=== PATIENT | female | born 1935 | race Caucasian/White ===

== ENCOUNTER 2018-02-27 08:38 | Inpatient (IN) | payer OTHER ==
[2018-02-27] MEDS ORDERED: morphine CARPU-JECT 2 MG/1 ML DISP.SYRIN IVPUSH ONE (10:03)
[2018-02-27] MEDS ORDERED: MORPHINE SULFATE 2 MG/ML VIAL ONE (10:13)
--- NOTE | 2018-02-27 10:21 | PDOC ---
History of Present Illness - General Chief Complaint: Injury Stated Complaint: FALL Time Seen by Provider: 02/27/18 10:07 History Source: Patient, Family (son) - History of Present Illness Initial Comments: 82 y/o F w/PMH of HTN, OA, mandibular CA S/P resection 04/2013 at [facility], S/P bilateral hip fractures, gait disorder, L knee TKR, R femur fracture presents to the ER with pain in R hip. Hx translated with son at bedside. Pt was using her walker to walk to her doctors appt when she lost her footing and fell on her R hip. Has been unable to bear weight on leg now and has pain with extension or flexion at hip. She did not hit her head and only fell on her side, landing on her hip. She has been having some dizziness over the last few days. She denies CP, palpitations, SOB, cough, abd pain, dysuria, frequency, numbness or tingling in extremities. Past History - Past Medical History Allergies/Adverse Reactions: Allergies Allergy/AdvReac Type Severity Reaction Status Date / Time No Known Allergies Allergy Verified 08/15/13 15:15 Home Medications: Ambulatory Orders Atenolol [Tenormin -] 100 mg PO DAILY 04/04/14 Celecoxib [Celebrex] 200 mg PO DAILY 04/04/14 Acetaminophen [Tylenol .Regular Strength -] 650 mg PO Q6H PRN #10 tablet Antiox.mv No.10/Omeg3s/Lut/Loly [I-Caps with Lutein-[place] 3 Sfg] 1 each PO DAILY 05/09/15 Calcium 500 mg PO BID 05/09/15 Cholecalciferol (Vitamin D3) [Vitamin D-3] 2,000 unit PO DAILY 05/09/15 Multivit-Min/FA/Lycopen/Lutein [Centrum Silver Tablet] 1 each PO DAILY 05/09/15 Aspirin [ASA -] 325 mg PO DAILY@0800 tablet 05/10/15 Anemia: No Asthma: No Cancer: No Cardiac Disorders: No CVA: No COPD: No CHF: No Dementia: No Diabetes: No GI Disorders: No Disorders: No HTN: Yes Hypercholesterolemia: No Liver Disease: No Seizures: No Thyroid Disease: No - Surgical History Abdominal Surgery: No Appendectomy: No Cardiac Surgery: No Cholecystectomy: Yes Lung Surgery: No Neurologic Surgery: No Orthopedic Surgery: Yes (DONY HIP REPAIRS) - Immunization History Immunization Up to Date: Yes - Suicide/Smoking/Psychosocial Hx Smoking Status: No Smoking History: Never smoked Have you smoked in the past 12 months: No Number of Cigarettes Smoked Daily: 0 Information on smoking cessation initiated: No Hx Alcohol Use: No Drug/Substance Use Hx: No Substance Use Type: None Hx Substance Use Treatment: No Review of Systems - Review of Systems Able to Perform ROS?: Yes (son translated) Constitutional: No: Chills, Fever Respiratory: No: Cough, Shortness of Breath Cardiac (ROS): Yes: Lightheadedness. No: Chest Pain, Palpitations ABD/GI: Yes: Constipated (chronic). No: Nausea, Vomiting : No: Burning, Dysuria, Frequency Musculoskeletal: Yes: Joint Pain (R hip) Neurological: Yes: Dizziness. No: Numbness, Tingling *Physical Exam - Vital Signs Last Vital Signs Temp Pulse Resp BP Pulse Ox 97.4 F L 68 68 H 153/70 100 02/27/18 08:45 02/27/18 08:45 02/27/18 08:45 02/27/18 08:45 02/27/18 08:45 - Physical Exam General Appearance: Yes: Appropriately Dressed, Apparent Distress (crying due to pain) HEENT: positive: EOMI Respiratory/Chest: positive: Lungs Clear. negative: Respiratory Distress Cardiovascular: positive: Regular Rhythm, Regular Rate, S1, S2 (difficult to auscultate due to pt crying) Vascular Pulses: Dorsalis-Pedis (R): 2+, Doralis-Pedis (L): 2+ Gastrointestinal/Abdominal: positive: Normal Bowel Sounds, Soft. negative: Tender Musculoskeletal: positive: Decreased Range of Motion (at R hip), Other (Pain with passive extension and flexion at R hip. Tender to palpation at R hip. No pain with log rolling of R leg.) Neurologic: positive: Fully Oriented, Alert, Other (Sensation intact in b/l LE to light touch.) ED Treatment Course - LABORATORY CBC & Chemistry Diagram: 02/27/18 10:29 02/27/18 10:27 - RADIOLOGY Radiology Studies Ordered: Category Date Time Status CXRPORT [CHEST X-RAY PORTABLE*] [RAD] Stat Radiology 02/27/18 10:12 Ordered HIP & PELVIS-RIGHT [RAD] Stat Radiology 02/27/18 10:03 Ordered Medical Decision Making - Medical Decision Making 02/27/18 10:24 Pt with pain at R hip after mechanical fall but has been having dizziness over the last few days. Last fall according to family was 2-3 years ago. Will check CBC, CMP, trops, EKG, UA, CXR, R hip and pelvis XR 02/27/18 11:33 Pt was unable to lay flat for CXR or for hip/pelvis XR. Was able to get one film of femur in her current positioning. Spoke with Dr. Vences regarding the patient's femoral fracture seen on XR. Pt to have pain control, NPO after midnight, and will have surgery tomorrow. 02/27/18 11:37 Will start on fluids - NS @ 75 ml/hr. Pt on ASA 81 - To be held. 02/27/18 11:39 Pt still in pain. Will give 4 mg morphine IV. Zofran 4 mg. EKG: sinus rhythm with PACs. 68 bpm. QTc 452 ms. 02/27/18 11:51 Dr. Graves' service called. Spoke with office who states Dr. Pena will be taking admissions at this time for Dr. Graves. Dr. Sow on for Dr. Pena at this time. Awaiting call back. *DC/Admit/Observation/Transfer Diagnosis at time of Disposition: Femur fracture - Discharge Dispostion Condition at time of disposition: Stable Decision to Admit order: Yes - Referrals Referrals: Hodan Graves MD [Primary Care Provider] - - Patient Instructions - Post Discharge Activity
[2018-02-27 10:59] LABS: EOS % 1.7 % (0-4.5); HEMOGLOBIN 12.3 GM/dL (10.7-15.3); LYMPH % 14.8 % (8-40); MCH 26.1 pg (25.7-33.7); MCHC 31.6 g/dl (32.0-36.0); MEAN CELL VOLUME 82.7 fl (80-96); MEAN PLT VOLUME 10.5 fl (7.5-11.1); MONO % 1.5 % (3.8-10.2); PLATELET COUNT 225 K/MM3 (134-434); RBC 4.71 M/mm3 (3.60-5.2); RDW 15.1 % (11.6-15.6); WHITE BLOOD COUNT 10.3 K/mm3 (4.0-10.0)
[2018-02-27 11:11] LABS: INR 0.91 (0.83-1.09); PROTHROMBIN TIME (PATIENT) 10.7 SEC (9.7-13.0)
[2018-02-27 11:14] LABS: ACTIVATED PTT 27.1 SECONDS (25.2-36.5)
[2018-02-27] MEDS ORDERED: morphine CARPU-JECT 4 MG/1 ML DISP.SYRIN IVPUSH ONE (11:21)
[2018-02-27] MEDS ORDERED: morphine SULFATE 4 MG/ML VIAL ONE (11:34)
[2018-02-27] MEDS ORDERED: ONDANSETRON 4 MG/2 ML VIAL ONE (11:34)
[2018-02-27 11:35] LABS: ALBUMIN 3.7 g/dl (3.4-5.0); ALK PHOS 97 U/L (45-117); ANION GAP 7 MMOL/L (8-16); BILIRUBIN,TOTAL 0.4 mg/dL (0.2-1); BLOOD UREA NITROGEN 27 mg/dL (7-18); CALCIUM 9.2 mg/dL (8.5-10.1); CHLORIDE 104 mmol/L (98-107); CO2 25 mmol/L (21-32); CREATININE 0.8 mg/dL (0.55-1.3); GLUCOSE,RANDOM 107 mg/dL (74-106); POTASSIUM 4.6 mmol/L (3.5-5.1); SGOT/AST 42 U/L (15-37); SGPT/ALT 21 U/L (13-61); SODIUM 137 mmol/L (136-145); TOT PROT 7.8 g/dl (6.4-8.2)
[2018-02-27] MEDS: ONDANSETRON 4 MG/2 ML VIAL IVPB ONE (11:40)
[2018-02-27] MEDS ORDERED: SODIUM CHLORIDE 1,000 ML IV SCH (11:45)
--- NOTE | 2018-02-27 11:54 | PDOC ---
Attending Attestation - HPI HPI: 02/27/18 12:10 The patient is a 82 year old female with a significant past medical history of HTN, OA, mandibular CA S/P resection 04/2013 at [facility], S/P bilateral hip fractures, gait disorder, L knee TKR, R femur fracture who presents to the ER with right hip pain. As per son at bedside, the patient was using her walker and subsequently fell. The patient has been unable to bear weight on her right leg since. The fall was witnessed and denies any head trauma. The son also states the patient has been complaining of dizziness for the past two days. The patient denies chest pain, shortness of breath, headache. Denies fever, chills, nausea, vomit, diarrhea, and constipation. Denies dysuria, frequency, urgency, and hematuria. Allergies: NKA Social history: None reported. PCP: Dr. Graves - Physicial Exam PE: 02/27/18 13:03 Adult Physical Exam Vitals: Triage vital signs reviewed General Appearance: (+) In moderate distress. Well nourished, well developed. Head: Atraumatic Cardiac: Regular rate and rhythm, no murmurs, no rubs, no gallops Lungs: Clear to auscultation bilateral, good air movement bilaterally Abdomen: Soft, nondistended, normal bowel sounds, nontender to palpation Extremities: no cyanosis, clubbing, or edema. (+) Right hip deformity, neurovascularly intact distally. Skin: Warm and dry, no rashes or lesions, no rash, no petechiae Neuro: AOX3; Cranial Nerves 2-12 grossly intact, Strength intact to all extremities, Sensation intact to all extremities, gait normal Psych: Normal mood, normal affect - Medical Decision Making 02/27/18 12:00 Case d/w christina [place]. <Elis Copeland - Last Filed: 02/27/18 13:03> - Resident Resident Name: Steven Sarabia - ED Attending Attestation I have performed the following: I have examined & evaluated the patient, The case was reviewed & discussed with the resident, I agree w/resident's findings & plan, Exceptions are as noted - Medical Decision Making 82 years old with lightheadedness complicated by fall on x-ray femur fracture distal to previous hip replacement IV pain medication ordered were no significant relief Anesthesia consultation for femoral nerve block Patient now more comfortable. Orthopedics consult and likely for tomorrow limits medicine for further management. <Augusto Granados - Last Filed: 02/27/18 14:55>
[2018-02-27] MEDS ORDERED: MIDAZOLAM HCL 2 MG/2 ML SINGLE DOSE VIAL IVPUSH ONE ×3 (12:40→13:39)
[2018-02-27] MEDS ORDERED: MIDAZOLAM HCL 2 MG/2 ML SINGLE DOSE VIAL ONE (12:43)
[2018-02-27] MEDS ORDERED: ROPIVACAINE HCL 0.5% 30ML VIAL ONE (13:17)
[2018-02-27 13:43] LABS: URINE APPEARANCE CLEAR; URINE BILIRUBIN NEGATIVE (<2.0 mg/dL); URINE COLOR YELLOW; URINE GLUCOSE (UA) NEGATIVE (NEGATIVE); URINE KETONE TRACE (NEGATIVE); URINE LEUK ESTERASE NEGATIVE (NEGATIVE); URINE NITRITE NEGATIVE (NEGATIVE); URINE PROTEIN NEGATIVE (NEGATIVE); URINE UROBILINOGEN NEGATIVE mg/dL (0.2-1.0)
--- NOTE | 2018-02-27 13:45 | PN ---
Progress Note (short form) - Note Progress Note: Anesthesia/Pain Called to perfom right femoral block for pain control s/p proximal femoral fracture Iv versed 4mg used Under ultrasound guidance right femoral block performed after consent Dr sommer assisted Vitals stable pre and post procedure Mt Azul MD
--- NOTE | 2018-02-27 13:59 | CON.ORTH ---
Consult Reason for Consultation:: right femur fx - Past Medical History Cardio/Vascular: Yes: HTN Musculoskeletal: Yes: Osteoarthritis - Past Surgical History Past Surgical History: Yes: Cholecystectomy - Alcohol/Substance Use Hx Alcohol Use: No History of Substance Use: reports: None - Smoking History Smoking history: Never smoked Have you smoked in the past 12 months: No Aproximately how many cigarettes per day: 0 - Social History ADL: Independent History of Recent Travel: No Home Medications - Allergies Allergies/Adverse Reactions: Allergies Allergy/AdvReac Type Severity Reaction Status Date / Time No Known Allergies Allergy Verified 08/15/13 15:15 - Home Medications Home Medications: Ambulatory Orders Atenolol [Tenormin -] 100 mg PO DAILY 04/04/14 Celecoxib [Celebrex] 200 mg PO DAILY 04/04/14 Acetaminophen [Tylenol .Regular Strength -] 650 mg PO Q6H PRN #10 tablet Antiox.mv No.10/Omeg3s/Lut/Loly [I-Caps with Lutein-[place] 3 Sfg] 1 each PO DAILY 05/09/15 Calcium 500 mg PO BID 05/09/15 Cholecalciferol (Vitamin D3) [Vitamin D-3] 2,000 unit PO DAILY 05/09/15 Multivit-Min/FA/Lycopen/Lutein [Centrum Silver Tablet] 1 each PO DAILY 05/09/15 Aspirin [ASA -] 325 mg PO DAILY@0800 tablet 05/10/15 Physical Exam for Ortho Vital Signs: Vital Signs Temperature 97.4 F L 02/27/18 08:45 Pulse Rate 79 02/27/18 13:27 Respiratory Rate 18 02/27/18 13:27 Blood Pressure 125/49 L 02/27/18 13:27 O2 Sat by Pulse Oximetry (%) 100 02/27/18 13:27 Labs: CBC, BMP 02/27/18 10:29 02/27/18 10:27 INR, PTT INR 0.91 (0.83-1.09) 02/27/18 10:29 - Lower Extremity Hip: Yes: Right, Decreased ROM (+ deformity, nvi), Leg Externally Rotated, Leg Shortened, Pain, Swelling, Other Imaging - Results X-ray: Report Reviewed, Image Reviewed Assessment/Plan 82 year old female with a significant past medical history of HTN, OA, mandibular CA S/P resection 04/2013 at [facility], S/P bilateral hip fractures, gait disorder, L knee TKR, R femur fracture who presents to the ER with right hip pain. As per son at bedside, the patient was using her walker and subsequently fell. The patient has been unable to bear weight on her right leg since. The fall was witnessed and denies any head trauma. a/p right femoral shaft fx s/p previous ORIF Risks and benefits were d/w pt and son in detail OR tomorrow for right femur retrograde nail surgical clearance NPO after midnight d/w Dr. Vences
--- NOTE | 2018-02-27 14:01 | HP ---
Admitting History and Physical - Primary Care Physician PCP: Hodan Graves - Admission Chief Complaint: s/p fall lost balance History of Present Illness: he patient is a 82 year old female with a significant past medical history of HTN, OA, mandibular CA S/P resection 04/2013 at [facility], S/P bilateral hip fractures, gait disorder, L knee TKR, R femur fracture who presents to the ER with right hip pain. As per son at bedside, the patient was using her walker and subsequently fell. The patient has been unable to bear weight on her right leg since. The fall was witnessed and denies any head trauma. The son also states the patient has been complaining of dizziness for the past two days. The patient denies chest pain, shortness of breath, headache. Denies fever, chills, nausea, vomit, diarrhea, and constipation. Denies dysuria, frequency, urgency, and hematuria. History Source: Family Member - Past Medical History Cardiovascular: Yes: HTN Musculoskeletal: Yes: Osteoarthritis - Past Surgical History Past Surgical History: Yes: Cholecystectomy - Smoking History Smoking history: Never smoked Have you smoked in the past 12 months: No Aproximately how many cigarettes per day: 0 - Alcohol/Substance Use Hx Alcohol Use: No History of Substance Use: reports: None - Social History ADL: Independent History of Recent Travel: No Home Medications - Allergies Allergies/Adverse Reactions: Allergies Allergy/AdvReac Type Severity Reaction Status Date / Time No Known Allergies Allergy Verified 08/15/13 15:15 - Home Medications Home Medications: Ambulatory Orders Atenolol [Tenormin -] 100 mg PO DAILY 04/04/14 Celecoxib [Celebrex] 200 mg PO DAILY 04/04/14 Acetaminophen [Tylenol .Regular Strength -] 650 mg PO Q6H PRN #10 tablet Antiox.mv No.10/Omeg3s/Lut/Loly [I-Caps with Lutein-[place] 3 Sfg] 1 each PO DAILY 05/09/15 Calcium 500 mg PO BID 05/09/15 Cholecalciferol (Vitamin D3) [Vitamin D-3] 2,000 unit PO DAILY 05/09/15 Multivit-Min/FA/Lycopen/Lutein [Centrum Silver Tablet] 1 each PO DAILY 05/09/15 Aspirin [ASA -] 325 mg PO DAILY@0800 tablet 05/10/15 Review of Systems - Review of Systems Musculoskeletal: reports: Joint Pain Physical Examination Vital Signs: Vital Signs Temperature 97.4 F L 02/27/18 08:45 Pulse Rate 79 02/27/18 13:27 Respiratory Rate 18 02/27/18 13:27 Blood Pressure 125/49 L 02/27/18 13:27 O2 Sat by Pulse Oximetry (%) 100 02/27/18 13:27 Constitutional: Yes: Calm Cardiovascular: Yes: Regular Rate and Rhythm, S1, S2 Respiratory: Yes: CTA Bilaterally Gastrointestinal: Yes: Normal Bowel Sounds, Soft Extremities: Yes: Deformity, Shortened Labs: CBC, BMP 02/27/18 10:29 02/27/18 10:27 Imaging - Results Chest X-ray: Report Reviewed (mid shaft femur fracture) Problem List - Problems (1) Femur fracture Assessment/Plan: NPO tonight OR In AM- ortho cardiology cleareance right femoral nerve block done by anesthesia pain control reese cath leukocytosis secondary to stress of fracture dvt ppx Code(s): S72.90XA - UNSP FRACTURE OF UNSP FEMUR, INIT ENCNTR FOR CLOSED FRACTURE
[2018-02-27] MEDS: DEXTROSE 5%-0.45% SALINE 1,000 ML IV SCH (15:35)
[2018-02-27 18:51] VITALS: BMI 25.9
--- NOTE | 2018-02-27 19:58 | CON.CARD ---
Consult Consult Specialty:: Cardiology Reason for Consultation:: Preop clearance - History of Present Illness Chief Complaint: S/P Fall History of Present Illness: This is an 82 year old female with a PMH of [place], OA, mandibular CA S/P resection 04/2013 at [facility], S/P bilateral hip fractures, gait disorder, and L knee TKR, R femur fracture. She present now to the ED with right Hip pain after a mechanical fall. With likely require orthopaedic surgery. She denies cardiac symptoms. She denies chest pain, palpitations, and SOB. She had no cardiac issues during her past surgeries. - Past Medical History Cardio/Vascular: Yes: HTN Musculoskeletal: Yes: Osteoarthritis - Past Surgical History Past Surgical History: Yes: Cholecystectomy - Alcohol/Substance Use Hx Alcohol Use: No History of Substance Use: reports: None - Smoking History Smoking history: Never smoked Have you smoked in the past 12 months: No Aproximately how many cigarettes per day: 0 - Social History ADL: Independent History of Recent Travel: No Home Medications - Allergies Allergies/Adverse Reactions: Allergies Allergy/AdvReac Type Severity Reaction Status Date / Time No Known Allergies Allergy Verified 08/15/13 15:15 - Home Medications Home Medications: Ambulatory Orders Atenolol [Tenormin -] 100 mg PO DAILY 04/04/14 Celecoxib [Celebrex] 200 mg PO DAILY 04/04/14 Acetaminophen [Tylenol .Regular Strength -] 650 mg PO Q6H PRN #10 tablet Antiox.mv No.10/Omeg3s/Lut/Loly [I-Caps with Lutein-[place] 3 Sfg] 1 each PO DAILY 05/09/15 Calcium 500 mg PO BID 05/09/15 Cholecalciferol (Vitamin D3) [Vitamin D-3] 2,000 unit PO DAILY 05/09/15 Multivit-Min/FA/Lycopen/Lutein [Centrum Silver Tablet] 1 each PO DAILY 05/09/15 Aspirin [ASA -] 325 mg PO DAILY@0800 tablet 05/10/15 Review of Systems Findings/Remarks: As per HPI Vital Signs: Vital Signs Temperature 98.5 F 02/27/18 18:26 Pulse Rate 75 02/27/18 18:26 Respiratory Rate 18 02/27/18 18:26 Blood Pressure 140/66 02/27/18 18:26 O2 Sat by Pulse Oximetry (%) 99 02/27/18 18:26 Constitutional: Yes: No Distress HENT: Yes: WNL Neck: Yes: WNL Respiratory: Yes: CTA Bilaterally Gastrointestinal: Yes: Normal Bowel Sounds Renal/: Yes: WNL Cardiovascular: Yes: Regular Rate and Rhythm (NL S1S2, no MRHG) Edema: No Neurological: Yes: Alert, Oriented (Non focal) - Other Data Labs, Other Data: CBC, BMP 02/27/18 10:29 02/27/18 10:27 INR, PTT INR 0.91 (0.83-1.09) 02/27/18 10:29 Troponin, BNP 02/27/18 10:27 Troponin I < 0.02 Troponin, BNP 02/27/18 10:27 Troponin I < 0.02 Assessment/Plan 82 year old female with a PMH of [place], OA, mandibular CA S/P resection 04/2013 at [facility], S/P bilateral hip fractures, gait disorder, and L knee TKR, R femur fracture. She present now to the ED with right Hip pain after a mechanical fall. With likely require orthopaedic surgery. She denies cardiac symptoms. She denies chest pain, palpitations, and SOB. She had no cardiac issues during her past surgeries. Preoperative Evaluation There are no cardiac contraindicaitons to orthopaedic surgery. Will follow with you.
--- NOTE | 2018-02-27 21:51 | EKG ---
Test Reason : Blood Pressure : / mmHG Vent. Rate : 068 BPM Atrial Rate : 068 BPM P-R Int : 102 ms QRS Dur : 078 ms QT Int : 426 ms P-R-T Axes : 070 -13 022 degrees QTc Int : 452 ms POOR DATA QUALITY, INTERPRETATION MAY BE ADVERSELY AFFECTED SINUS RHYTHM WITH SHORT NC WITH PREMATURE ATRIAL COMPLEXES BORDERLINE ECG WHEN COMPARED WITH ECG OF 04-APR-2014 11:46, PREMATURE ATRIAL COMPLEXES ARE NOW present Confirmed by JO-ANN COX MD ([id number]) on 02/27/2018 9:51:24 PM Referred By: Confirmed By:JO-ANN COX MD
[2018-02-28] MEDS: MORPHINE SULFATE 2 MG/ML VIAL IVPUSH PRN ×3 (05:50→19:28)
[2018-02-28] MEDS: DEXTROSE 5%-0.45% SALINE 1,000 ML IV SCH (05:51)
[2018-02-28 08:20] LABS: ALBUMIN 2.8 g/dl (3.4-5.0); ALK PHOS 92 U/L (45-117); ANION GAP 6 MMOL/L (8-16); BILIRUBIN,TOTAL 0.6 mg/dL (0.2-1); BLOOD UREA NITROGEN 19 mg/dL (7-18); CALCIUM 8.5 mg/dL (8.5-10.1); CHLORIDE 106 mmol/L (98-107); CO2 27 mmol/L (21-32); CREATININE 0.8 mg/dL (0.55-1.3); GLUCOSE,RANDOM 133 mg/dL (74-106); POTASSIUM 4.1 mmol/L (3.5-5.1); SGOT/AST 42 U/L (15-37); SGPT/ALT 26 U/L (13-61); SODIUM 139 mmol/L (136-145)
[2018-02-28 08:23] LABS: BASO % 0.8 % (0-2.0); EOS % 1.5 % (0-4.5); HEMATOCRIT 33.8 % (32.4-45.2); LYMPH % 16.4 % (8-40); MCH 26.8 pg (25.7-33.7); MCHC 32.5 g/dl (32.0-36.0); MEAN CELL VOLUME 82.4 fl (80-96); MEAN PLT VOLUME 9.9 fl (7.5-11.1); MONO % 3.1 % (3.8-10.2); NEUT % 78.2 % (42.8-82.8); PLATELET COUNT 182 K/MM3 (134-434); RBC 4.11 M/mm3 (3.60-5.2); RDW 14.7 % (11.6-15.6); WHITE BLOOD COUNT 7.9 K/mm3 (4.0-10.0)
--- NOTE | 2018-02-28 08:44 | PN ---
Progress Note, Physician Chief Complaint: EVENTS AND NOTES REVIEWED S/P FALL RIGHT HIP FX IN MODERATE DISTRESS - Current Medication List Current Medications: Active Medications Enoxaparin Sodium (Lovenox -) 40 mg SQ DAILY [facility] Dextrose/Sodium Chloride (D5-1/2ns -) 1,000 mls @ 75 mls/hr IV ASDIR DEBO Last Admin: 02/28/18 05:51 Dose: 75 mls/hr Morphine Sulfate (Morphine Sulfate) 2 mg IVPUSH Q4H PRN PRN Reason: PAIN LEVEL 7 - 10 Last Admin: 02/28/18 05:50 Dose: 2 mg - Objective Vital Signs: Vital Signs Temperature 97.5 F L 02/28/18 06:56 Pulse Rate 70 02/28/18 06:56 Respiratory Rate 20 02/28/18 06:56 Blood Pressure 115/61 02/28/18 06:56 O2 Sat by Pulse Oximetry (%) 99 02/27/18 21:00 Constitutional: Yes: Moderate Distress Eyes: Yes: WNL HENT: Yes: WNL Cardiovascular: Yes: WNL Respiratory: Yes: WNL Gastrointestinal: Yes: WNL Genitourinary: Yes: WNL Musculoskeletal: Yes: Muscle Weakness Extremities: Yes: Other Edema: No Peripheral Pulses WNL: Yes Integumentary: Yes: WNL Wound/Incision: Yes: Clean/Dry Neurological: Yes: WNL ...Motor Strength: LLE, RLE Psychiatric: Yes: WNL Labs: CBC, BMP 02/27/18 10:29 02/28/18 06:00 INR, PTT INR 0.91 (0.83-1.09) 02/27/18 10:29 Problem List - Problems (1) Femur fracture Code(s): S72.90XA - UNSP FRACTURE OF UNSP FEMUR, INIT ENCNTR FOR CLOSED FRACTURE (2) Hip fracture Code(s): S72.009A - FRACTURE OF UNSP PART OF NECK OF UNSP FEMUR, INIT (3) Hypertension Code(s): I10 - ESSENTIAL (PRIMARY) HYPERTENSION Assessment/Plan ORTHOPEDIC CLEARANCE FOR HIP SURGERY DVT PROPHYLAXIS PAIN CONTROL PT SNF
[2018-02-28] MEDS ORDERED: ENOXAPARIN NA (PORCINE) 40 MG/0.4 ML DISP.SYRIN SQ SCH (10:00)
[2018-02-28] MEDS ORDERED: SUCCINYLCHOLINE CHLORIDE 200 MG/10 ML VIAL ONE (12:47)
[2018-02-28] MEDS ORDERED: PROPOFOL 20 ML ONE (12:47)
[2018-02-28] MEDS ORDERED: ceFAZolin SODIUM 1 GM VIAL IVPB ONE (13:00)
--- NOTE | 2018-02-28 14:36 | OP ---
Operative Note - Note: Operative Date: 02/28/18 ([facility]) Pre-Operative Diagnosis: right femoral shaft fx Operation: right femur removal of hardware, retrograde IM nail Post-Operative Diagnosis: Same as Pre-op Surgeon: Rodlan Vences Operating Room Tech: Obinna Cherry Anesthesia: General Estimated Blood Loss (mls): 400 Operative Report Dictated: Yes
[2018-02-28] MEDS ORDERED: LACTATED RINGERS SOLUTION 1,000 ML IV SCH (14:45)
--- NOTE | 2018-02-28 14:52 | PN ---
Progress Note, Physician Chief Complaint: seen in pacu postop tele nsr. History of Present Illness: 82 year old female with a PMH of [place], OA, mandibular CA S/P resection 04/2013 at [facility], S/P bilateral hip fractures, gait disorder, and L knee TKR, R femur fracture. She present now to the ED with right Hip pain after a mechanical fall. With likely require orthopaedic surgery. She denies cardiac symptoms. She denied chest pain, palpitations, and SOB. She had no cardiac issues during her past surgeries. Now s/p complex prosthetic hip fracture revision. Brief decrease in end tidal CO2 during surgery. Getting PRBC. - Current Medication List Current Medications: Active Medications Enoxaparin Sodium (Lovenox -) 40 mg SQ DAILY DEBO Last Admin: 02/28/18 09:56 Dose: Not Given Cefazolin Sodium/Dextrose (Ancef 2 Gm Premixed Ivpb -) 2 gm in 50 mls @ 100 mls /hr IVPB Q8H-IV DEBO Stop: 03/01/18 02:14 Lactated Ringer's (Lactated Ringers Solution) 1,000 mls @ 75 mls/hr IV ASDIR DEBO Morphine Sulfate (Morphine Sulfate) 2 mg IVPUSH Q4H PRN PRN Reason: PAIN LEVEL 7 - 10 Last Admin: 02/28/18 10:08 Dose: 2 mg - Objective Vital Signs: Vital Signs Temperature 97.8 F 02/28/18 09:00 Pulse Rate 78 02/28/18 09:00 Respiratory Rate 20 02/28/18 09:00 Blood Pressure 116/51 L 02/28/18 09:00 O2 Sat by Pulse Oximetry (%) 98 02/28/18 09:00 Constitutional: Yes: No Distress, Calm Eyes: Yes: Conjunctiva Clear, EOM Intact HENT: Yes: Atraumatic, Normocephalic Neck: Yes: Supple, Trachea Midline Cardiovascular: Yes: Regular Rate and Rhythm Respiratory: Yes: CTA Bilaterally Gastrointestinal: Yes: Normal Bowel Sounds, Soft Edema: No Peripheral Pulses WNL: Yes Labs: CBC, BMP 02/28/18 07:20 02/28/18 06:00 INR, PTT INR 0.91 (0.83-1.09) 02/27/18 10:29 Assessment/Plan 82 year old female with a PMH of [place], OA, mandibular CA S/P resection 04/2013 at [facility], S/P bilateral hip fractures, gait disorder, and L knee TKR, R femur fracture. She present now to the ED with right Hip pain after a mechanical fall. With likely require orthopaedic surgery. She denies cardiac symptoms. She denied chest pain, palpitations, and SOB. She had no cardiac issues during her past surgeries. Now s/p complex prosthetic hip fracture revision. Brief decrease in end tidal CO2 during surgery. Getting PRBC. -stable cardiac status postop -DVT PPX. -end tidal co2 brief decrease is likely due to hypoventilation and/or atalectasis/mucus plugging. -doubt ischemia. -restart home meds when stable -call us as needed.
[2018-02-28] MEDS ORDERED: ONDANSETRON 4 MG/2 ML VIAL IVPUSH PRN (14:56)
[2018-02-28] MEDS ORDERED: ACETAMINOPHEN 1000 MG/100 ML VIAL (NON FORMULARY) IVPB ONE (14:58)
[2018-02-28] MEDS ORDERED: ONDANSETRON 4 MG/2 ML VIAL ONE (15:54)
[2018-02-28] MEDS: ONDANSETRON 4 MG/2 ML VIAL IVPB ONE (16:00)
[2018-02-28] MEDS: LACTATED RINGERS SOLUTION 1,000 ML IV SCH (19:32)
[2018-02-28] MEDS ORDERED: CEFAZOLIN 2 GM/D5W 2 GM/50 ML ML IVPB SCH (21:00)
[2018-02-28] MEDS: oxyCODONE HCL 5 MG TABLET PO PRN (22:02)
[2018-02-28] MEDS: CEFAZOLIN 2 GM/D5W 2 GM/50 ML ML IVPB SCH (22:03)
[2018-03-01] MEDS: MORPHINE SULFATE 2 MG/ML VIAL IVPUSH PRN ×5 (00:40→20:24)
[2018-03-01] MEDS: oxyCODONE HCL 5 MG TABLET PO PRN ×4 (02:50→18:15)
[2018-03-01] MEDS: CEFAZOLIN 2 GM/D5W 2 GM/50 ML ML IVPB SCH ×2 (05:56→13:36)
--- NOTE | 2018-03-01 08:06 | OP ---
DATE OF OPERATION: 02/28/2018 PREOPERATIVE DIAGNOSIS: Right periprosthetic femoral shaft fracture below an old DHS (dynamic hip system) hip plate and screws. POSTOPERATIVE DIAGNOSIS: Right periprosthetic femoral shaft fracture below an old DHS (dynamic hip system) hip plate and screws. PROCEDURE: Removal of hardware and then retrograde nailing of the right femoral shaft fracture. SURGICAL ATTENDING: Roldan Vences MD BUSINESS ANALYSIS CONSULTANT: CHEIKH Shoemaker ANESTHESIA: General. CLOSURE: A Tolley retrograde femoral nail with appropriate interlocks, 0 Vicryl for fascia, 2-0 subcutaneous, lorri for skin. ESTIMATED BLOOD LOSS: Approximately 400 mL. COMPLICATIONS: None. CONDITION: To recovery room in stable condition. DESCRIPTION OF OPERATIVE PROCEDURE: Patient was taken to the operating room on February 28, 2018. General anesthesia with endotracheal intubation was administered by the anesthesiologist. IV Kefzol was prophylactically administered prior to the case. Patient was placed supine on the operating table. Right hip area from the groin all the way down to the knee was prepped and draped in the usual sterile fashion. A 5-6-cm longitudinal incision over the previous scar in the posterolateral aspect of the right proximal thigh was incised. Hemostasis was achieved with Bovie cautery, and sharp dissection was carried down through the level of the fascia. The vastus lateralis fibers were spread exposing the lateral aspect of the plate. Soft tissue in and around the plate was debrided exposing the plate. Four of the locking screws were removed. The rest of the plate was left as it was caked in with bone, and the lag screw was left in situ, as well. Verbrugge clamps were placed both on the proximal and distal fragments and used to manipulate the fracture until an anatomic reduction was obtained. A small 5-cm incision over the medial aspect of the patellar tendon was incised. Hemostasis was achieved using Bovie cautery. Sharp dissection was carried down just medial to the tendon entering the knee joint. A guidewire was drilled from the distal femur just above the notch into the distal femur. Proper placement of the wire was confirmed in the AP and lateral plane by using the image intensifier. This was overreamed with the starter reamer. A ball-tipped guidewire was placed up the intramedullary canal of the femur past the fracture site into the proximal aspect of the hip. Wire was measured for length. The intramedullary canal was reamed up to a 13.5 reamer. A 12 x 340 mm dennise was then malletted up into place achieving excellent anatomic reduction of the fracture. Two distal interlocks were placed using the outrigger from lateral to medial through 2 small stab incisions achieving excellent fixation. The outrigger was then removed. Using a free-hand technique, 2 anterior to posterior locking screws were placed in the proximal aspect of the femur, which was the distal aspect of the dennise from anterior to posterior. X-rays revealed excellent position of the screws. Anatomic reduction of the fracture position of all the hardware was confirmed in the AP and lateral plane. Rotation revealed excellent stability at the fracture site. All incisions were irrigated out.with copious amounts of irrigation. The fascia was closed in both incisions with No. 1 Vicryl, 0 and 2-0 subcutaneous, lorri for skin. Sterile pressure dressing was applied. Patient was awakened from anesthesia and transferred to the recovery room in stable condition. No complications. Patient bled approximately 400 mL at the end of the case. We began administering 1 unit of packed cells. Patient will get that over 3 hours, and then a additional unit to follow, and then, we will check the hematocrit tomorrow to ensure appropriate response to the blood loss in the operation. Patient was transferred to the recovery room in stable condition. Estimated blood loss again 400 mL. No complications Jose Angel [id number]
[2018-03-01 08:21] LABS: HEMATOCRIT 32.2 % (32.4-45.2); HEMOGLOBIN 10.6 GM/dL (10.7-15.3); MCH 27.3 pg (25.7-33.7); MCHC 32.9 g/dl (32.0-36.0); MEAN PLT VOLUME 9.9 fl (7.5-11.1); PLATELET COUNT 132 K/MM3 (134-434); RBC 3.89 M/mm3 (3.60-5.2); RDW 14.7 % (11.6-15.6); WHITE BLOOD COUNT 7.7 K/mm3 (4.0-10.0)
[2018-03-01 08:55] LABS: ANION GAP 8 MMOL/L (8-16); BLOOD UREA NITROGEN 18 mg/dL (7-18); CALCIUM 7.9 mg/dL (8.5-10.1); CHLORIDE 105 mmol/L (98-107); CO2 25 mmol/L (21-32); CREATININE 0.8 mg/dL (0.55-1.3); GLUCOSE,RANDOM 122 mg/dL (74-106); POTASSIUM 4.1 mmol/L (3.5-5.1); SODIUM 138 mmol/L (136-145)
[2018-03-01] MEDS ORDERED: PT OWN MED DRAWER 7, Y5N ONE ×3 (10:11→18:35)
--- NOTE | 2018-03-01 11:11 | PN ---
Progress Note, Physician Chief Complaint: AWAKE ALERT SON BEDSIDE C/O SOAR THROAT FROM EXTUBATION DENIES FEVER/CHEST PAIN OR DYSPNEA - Current Medication List Current Medications: Active Medications Benzocaine/Menthol (Cepacol Lozenge -) 1 each MM PRN PRN PRN Reason: SORE THROAT Enoxaparin Sodium (Lovenox -) 40 mg SQ DAILY [facility] Cefazolin Sodium/Dextrose (Ancef 2 Gm Premixed Ivpb -) 2 gm in 50 mls @ 100 mls /hr IVPB Q8H [facility] Stop: 03/01/18 20:59 Last Admin: 03/01/18 05:56 Dose: 100 mls/hr Lactated Ringer's (Lactated Ringers Solution) 1,000 mls @ 75 mls/hr IV ASDIR [facility] Last Admin: 02/28/18 19:32 Dose: 75 mls/hr Lactated Ringer's (Lactated Ringers Solution) 1,000 mls @ 75 mls/hr IV ASDIR [facility] Morphine Sulfate (Morphine Sulfate) 2 mg IVPUSH Q4H PRN PRN Reason: PAIN LEVEL 7 - 10 Last Admin: 03/01/18 10:20 Dose: 2 mg Ondansetron HCl (Zofran Injection) 4 mg IVPUSH Q6H PRN PRN Reason: NAUSEA AND/OR VOMITING Oxycodone HCl (Roxicodone -) 10 mg PO Q4H PRN PRN Reason: PAIN LEVEL 6-10 Last Admin: 03/01/18 08:00 Dose: 10 mg Oxycodone HCl (Roxicodone -) 5 mg PO Q4H PRN PRN Reason: PAIN LEVEL 1-5 Phenol/Menthol (Chloraseptic -) 1 spray MM Q6HPO PRN PRN Reason: SORE THROAT - Objective Vital Signs: Vital Signs Temperature 99.1 F 03/01/18 06:00 Pulse Rate 92 H 03/01/18 06:00 Respiratory Rate 20 03/01/18 06:00 Blood Pressure 118/50 L 03/01/18 06:00 O2 Sat by Pulse Oximetry (%) 100 02/28/18 18:00 Constitutional: Yes: Mild Distress Eyes: Yes: WNL HENT: Yes: WNL Neck: Yes: WNL Cardiovascular: Yes: WNL Respiratory: Yes: WNL Gastrointestinal: Yes: WNL Genitourinary: Yes: Friedman Present Musculoskeletal: Yes: Muscle Pain, Muscle Weakness Extremities: Yes: Other Edema: No Peripheral Pulses WNL: Yes Integumentary: Yes: WNL Wound/Incision: Yes: Clean/Dry Neurological: Yes: WNL ...Motor Strength: RLE Psychiatric: Yes: WNL Labs: CBC, BMP 03/01/18 07:15 03/01/18 07:15 INR, PTT INR 0.91 (0.83-1.09) 02/27/18 10:29 Problem List - Problems (1) Femur fracture Code(s): S72.90XA - UNSP FRACTURE OF UNSP FEMUR, INIT ENCNTR FOR CLOSED FRACTURE (2) Hip fracture Code(s): S72.009A - FRACTURE OF UNSP PART OF NECK OF UNSP FEMUR, INIT (3) Hypertension Code(s): I10 - ESSENTIAL (PRIMARY) HYPERTENSION Assessment/Plan ORTHOPEDIC CLEARANCE FOR HIP SURGERY POD #1 DVT PROPHYLAXIS PAIN CONTROL PT SNF CHLOREPT/CEPACOL FOR THROAT PAIN SOFT DIET INCENTIVE SPIROMETRY FRIEDMAN MAINTAIN
[2018-03-01] MEDS: ENOXAPARIN NA (PORCINE) 40 MG/0.4 ML DISP.SYRIN SQ SCH (12:16)
[2018-03-01] MEDS: LACTATED RINGERS SOLUTION 1,000 ML IV SCH ×2 (12:18→17:21)
[2018-03-01] MEDS: BENZOCAINE/MENTH/CETYLPYRD CL 1 EACH LOZENGE MM PRN (18:22)
[2018-03-01] MEDS: PHENOL 177 ML SPRAY BOTTLE MM PRN (18:22)
[2018-03-02] MEDS: oxyCODONE HCL 5 MG TABLET PO PRN ×3 (00:13→16:50)
[2018-03-02] MEDS: PHENOL 177 ML SPRAY BOTTLE MM PRN ×2 (00:19→10:12)
[2018-03-02] MEDS: BENZOCAINE/MENTH/CETYLPYRD CL 1 EACH LOZENGE MM PRN ×2 (00:19→10:12)
[2018-03-02] MEDS: MORPHINE SULFATE 2 MG/ML VIAL IVPUSH PRN ×3 (02:40→19:51)
[2018-03-02] MEDS ORDERED: PT OWN MED DRAWER 7, Y5N ONE ×3 (06:55→10:22)
--- NOTE | 2018-03-02 07:50 | PN ---
Progress Note, Physician Chief Complaint: s/p right distal femur ORIF History of Present Illness: under general anesthesia post op day one - Current Medication List Current Medications: Active Medications Benzocaine/Menthol (Cepacol Lozenge -) 1 each MM PRN PRN PRN Reason: SORE THROAT Last Admin: 03/02/18 00:19 Dose: 1 each Enoxaparin Sodium (Lovenox -) 40 mg SQ DAILY [facility] Last Admin: 03/01/18 12:16 Dose: 40 mg Lactated Ringer's (Lactated Ringers Solution) 1,000 mls @ 75 mls/hr IV ASDIR [facility] Last Admin: 03/01/18 17:21 Dose: Not Given Morphine Sulfate (Morphine Sulfate) 2 mg IVPUSH Q4H PRN PRN Reason: PAIN LEVEL 7 - 10 Last Admin: 03/02/18 02:40 Dose: 2 mg Ondansetron HCl (Zofran Injection) 4 mg IVPUSH Q6H PRN PRN Reason: NAUSEA AND/OR VOMITING Oxycodone HCl (Roxicodone -) 10 mg PO Q4H PRN PRN Reason: PAIN LEVEL 6-10 Last Admin: 03/02/18 00:13 Dose: 10 mg Oxycodone HCl (Roxicodone -) 5 mg PO Q4H PRN PRN Reason: PAIN LEVEL 1-5 Phenol/Menthol (Chloraseptic -) 1 spray MM Q6HPO PRN PRN Reason: SORE THROAT Last Admin: 03/02/18 00:19 Dose: 1 spray - Objective Vital Signs: Vital Signs Temperature 99.1 F 03/02/18 05:32 Pulse Rate 98 H 03/02/18 05:32 Respiratory Rate 20 03/02/18 05:32 Blood Pressure 106/62 03/02/18 05:32 O2 Sat by Pulse Oximetry (%) 100 02/28/18 18:00 Constitutional: Yes: No Distress Cardiovascular: Yes: WNL Respiratory: Yes: WNL Gastrointestinal: Yes: WNL Labs: CBC, BMP 03/01/18 07:15 03/01/18 07:15 INR, PTT INR 0.91 (0.83-1.09) 02/27/18 10:29 Assessment/Plan Pain controlled, no adverse effect of anesthetic, dept of anesthesia will sign off care at this time
[2018-03-02 08:22] LABS: HEMATOCRIT 30.1 % (32.4-45.2); HEMOGLOBIN 9.7 GM/dL (10.7-15.3); MCHC 32.2 g/dl (32.0-36.0); MEAN PLT VOLUME 10.3 fl (7.5-11.1); PLATELET COUNT 136 K/MM3 (134-434); RBC 3.59 M/mm3 (3.60-5.2); RDW 15.2 % (11.6-15.6); WHITE BLOOD COUNT 8.5 K/mm3 (4.0-10.0)
[2018-03-02] MEDS: ENOXAPARIN NA (PORCINE) 40 MG/0.4 ML DISP.SYRIN SQ SCH (10:12)
[2018-03-02] MEDS: LACTATED RINGERS SOLUTION 1,000 ML IV SCH ×3 (10:13→11:36)
--- NOTE | 2018-03-02 11:01 | PN ---
Progress Note, Physician Chief Complaint: AWAKE ALERT C/O NAUSEA NOT VOMITING +GERD - Current Medication List Current Medications: Active Medications Benzocaine/Menthol (Cepacol Lozenge -) 1 each MM PRN PRN PRN Reason: SORE THROAT Last Admin: 03/02/18 10:12 Dose: 1 each Enoxaparin Sodium (Lovenox -) 40 mg SQ DAILY [facility] Last Admin: 03/02/18 10:12 Dose: 40 mg Lactated Ringer's (Lactated Ringers Solution) 1,000 mls @ 75 mls/hr IV ASDIR [facility] Last Admin: 03/02/18 10:17 Dose: 75 mls/hr Morphine Sulfate (Morphine Sulfate) 2 mg IVPUSH Q4H PRN PRN Reason: PAIN LEVEL 7 - 10 Last Admin: 03/02/18 02:40 Dose: 2 mg Ondansetron HCl (Zofran Injection) 4 mg IVPUSH Q6H PRN PRN Reason: NAUSEA AND/OR VOMITING Oxycodone HCl (Roxicodone -) 10 mg PO Q4H PRN PRN Reason: PAIN LEVEL 6-10 Last Admin: 03/02/18 08:09 Dose: 10 mg Oxycodone HCl (Roxicodone -) 5 mg PO Q4H PRN PRN Reason: PAIN LEVEL 1-5 Phenol/Menthol (Chloraseptic -) 1 spray MM Q6HPO PRN PRN Reason: SORE THROAT Last Admin: 03/02/18 10:12 Dose: 1 spray - Objective Vital Signs: Vital Signs Temperature 97.8 F 03/02/18 09:00 Pulse Rate 106 H 03/02/18 09:00 Respiratory Rate 19 03/02/18 09:00 Blood Pressure 139/78 03/02/18 09:00 O2 Sat by Pulse Oximetry (%) 97 03/02/18 09:00 Constitutional: Yes: Mild Distress Eyes: Yes: WNL HENT: Yes: WNL Neck: Yes: WNL Cardiovascular: Yes: WNL Respiratory: Yes: WNL Gastrointestinal: Yes: WNL Genitourinary: Yes: WNL Musculoskeletal: Yes: Muscle Weakness Extremities: Yes: WNL Edema: No Peripheral Pulses WNL: Yes Integumentary: Yes: WNL Wound/Incision: Yes: Clean/Dry Neurological: Yes: WNL ...Motor Strength: LLE, RLE Psychiatric: Yes: WNL Labs: CBC, BMP 03/02/18 06:00 03/01/18 07:15 INR, PTT INR 0.91 (0.83-1.09) 02/27/18 10:29 Problem List - Problems (1) Femur fracture Code(s): S72.90XA - UNSP FRACTURE OF UNSP FEMUR, INIT ENCNTR FOR CLOSED FRACTURE (2) Hip fracture Code(s): S72.009A - FRACTURE OF UNSP PART OF NECK OF UNSP FEMUR, INIT (3) Hypertension Code(s): I10 - ESSENTIAL (PRIMARY) HYPERTENSION Assessment/Plan PROTONIX/ZOFRAN IV NOW OOB TO CHAIR INCENTIVE SPIROMETRY NEBS CHECK LABS ORTHO F/U
[2018-03-02] MEDS: PANTOPRAZOLE SODIUM 40 MG VIAL IVPUSH SCH (11:34)
--- NOTE | 2018-03-02 12:54 | PN ---
Progress Note (short form) - Note Progress Note: Pt lying in bed. Pain moderately controlled. Last Vital Signs Temp Pulse Resp BP Pulse Ox 97.8 F 106 H 19 139/78 97 03/02/18 09:00 03/02/18 09:00 03/02/18 09:00 03/02/18 09:00 03/02/18 09:00 RLE dresings cdi thigh swollen but soft calves soft NT ehl fhl ta g s intact sens int to LT 1+ dp Abnormal Lab Results 03/02/18 06:00 RBC 3.59 L Hgb 9.7 L Hct 30.1 L a/p: pod 2 R femoral periprosthetic nail -pain control -dvt proph -oob / PT -tachycardia most likely secondary to discomfort - continue to monitor -f/u AM HCT
[2018-03-02] MEDS: CALCIUM 500MG/VIT-D 200 UNITS COMBO TABLET (FP) PO SCH (21:26)
[2018-03-03] MEDS: oxyCODONE HCL 5 MG TABLET PO PRN ×5 (00:08→22:12)
[2018-03-03] MEDS: LACTATED RINGERS SOLUTION 1,000 ML IV SCH ×3 (00:11→20:13)
[2018-03-03] MEDS: PHENOL 177 ML SPRAY BOTTLE MM PRN (00:31)
[2018-03-03] MEDS ORDERED: PT OWN MED DRAWER 7, Y5N ONE (00:32)
[2018-03-03] MEDS: BENZOCAINE/MENTH/CETYLPYRD CL 1 EACH LOZENGE MM PRN (00:32)
--- NOTE | 2018-03-03 08:39 | PN ---
Progress Note (short form) - Note Progress Note: Ortho Pt seen and examined s/p right femur retrograde nail pod #3 Selected Entries 03/03/18 06:42 Temperature 98.3 F Pulse Rate 110 H Respiratory 19 Rate Blood Pressure 107/60 Laboratory Tests 03/02/18 06:00 WBC 8.5 Hgb 9.7 L Hct 30.1 L Plt Count 136 dressing c/d/i, calf soft, nt nvi a/p PT PWB dvt ppx pain control d/c planning
--- NOTE | 2018-03-03 09:00 | DS ---
Physical Examination Vital Signs: Vital Signs Temperature 98.3 F 03/03/18 06:42 Pulse Rate 110 H 03/03/18 06:42 Respiratory Rate 19 03/03/18 06:42 Blood Pressure 107/60 03/03/18 06:42 O2 Sat by Pulse Oximetry (%) 96 03/02/18 22:00 Labs: CBC, BMP 03/02/18 06:00 03/01/18 07:15 Discharge Summary Reason For Visit: FRACTURE OF FEMUR Current Active Problems Femur fracture (Acute) Condition: Stable - Instructions Referrals: Hodan Graves MD [Primary Care Provider] - - Home Medications Comprehensive Discharge Medication List: Ambulatory Orders Atenolol [Tenormin -] 100 mg PO DAILY 04/04/14 Celecoxib [Celebrex] 200 mg PO DAILY 04/04/14 Acetaminophen [Tylenol .Regular Strength -] 650 mg PO Q6H PRN #10 tablet Antiox.mv No.10/Omeg3s/Lut/Loly [I-Caps with Lutein-[place] 3 Sfg] 1 each PO DAILY 05/09/15 Calcium 500 mg PO BID 05/09/15 Cholecalciferol (Vitamin D3) [Vitamin D-3] 2,000 unit PO DAILY 05/09/15 Multivit-Min/FA/Lycopen/Lutein [Centrum Silver Tablet] 1 each PO DAILY 05/09/15 Aspirin [ASA -] 325 mg PO DAILY@0800 tablet 05/10/15
[2018-03-03] MEDS ORDERED: MAGNESIUM HYDROX 2400MG/30ML ORAL SUSPENSION 30 ML CUP PO ONE (09:29)
[2018-03-03 10:37] LABS: HEMATOCRIT 26.5 % (32.4-45.2); HEMOGLOBIN 8.8 GM/dL (10.7-15.3); MCH 27.7 pg (25.7-33.7); MCHC 33.2 g/dl (32.0-36.0); MEAN CELL VOLUME 83.5 fl (80-96); MEAN PLT VOLUME 9.7 fl (7.5-11.1); PLATELET COUNT 161 K/MM3 (134-434); RBC 3.17 M/mm3 (3.60-5.2); RDW 15.5 % (11.6-15.6); WHITE BLOOD COUNT 7.2 K/mm3 (4.0-10.0)
[2018-03-03 11:46] LABS: ALBUMIN 1.7 g/dl (3.4-5.0); ALK PHOS 77 U/L (45-117); ANION GAP 7 MMOL/L (8-16); BILIRUBIN,TOTAL 0.4 mg/dL (0.2-1); BLOOD UREA NITROGEN 19 mg/dL (7-18); CALCIUM 7.8 mg/dL (8.5-10.1); CHLORIDE 104 mmol/L (98-107); CO2 28 mmol/L (21-32); CREATININE 0.6 mg/dL (0.55-1.3); GLUCOSE,RANDOM 172 mg/dL (74-106); POTASSIUM 3.8 mmol/L (3.5-5.1); SGOT/AST 34 U/L (15-37); SGPT/ALT 15 U/L (13-61); SODIUM 139 mmol/L (136-145); TOT PROT 4.6 g/dl (6.4-8.2)
[2018-03-03] MEDS: ENOXAPARIN NA (PORCINE) 40 MG/0.4 ML DISP.SYRIN SQ SCH (11:52)
[2018-03-03] MEDS: POLYETHYLENE GLYCOL 3350 119 GM BTL PO SCH (11:52)
[2018-03-03] MEDS: PANTOPRAZOLE SODIUM 40 MG VIAL IVPUSH SCH (11:52)
[2018-03-03] MEDS: CALCIUM 500MG/VIT-D 200 UNITS COMBO TABLET (FP) PO SCH ×2 (11:52→22:12)
[2018-03-03] MEDS: ONDANSETRON 4 MG/2 ML VIAL IVPUSH PRN (13:23)
[2018-03-03] MEDS ORDERED: IRON SUCROSE INJECTION 200 MG in SODIUM CHLORIDE 90 ML IVPB ONE (14:00)
--- NOTE | 2018-03-03 15:34 | EKG ---
Test Reason : Blood Pressure : / mmHG Vent. Rate : 111 BPM Atrial Rate : 111 BPM P-R Int : 134 ms QRS Dur : 082 ms QT Int : 336 ms P-R-T Axes : 056 -10 020 degrees QTc Int : 456 ms SINUS TACHYCARDIA OTHERWISE NORMAL ECG WHEN COMPARED WITH ECG OF 27-FEB-2018 09:12, PREMATURE ATRIAL COMPLEXES ARE NO LONGER PRESENT VENT. RATE HAS INCREASED BY 43 BPM Confirmed by DANAY ANN, ARIELA ([id number]) on 03/03/2018 3:34:47 PM Referred By: MORTEZA PANG DR Confirmed By:ARIELA JON MD
--- NOTE | 2018-03-03 15:41 | PN ---
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 She present now to the ED with right Hip pain after a mechanical fall. With likely require orthopaedic surgery. She denies cardiac symptoms. She denied chest pain, palpitations, and SOB. She had no cardiac issues during her past surgeries. Now s/p complex prosthetic hip fracture revision. Seen 03/03/18 and is uncomfortable appearing. No bowel movement for 5 days. Diaphoretic. No chest pain, plapitations, or SOB. - Current Medication List Current Medications: Active Medications Benzocaine/Menthol (Cepacol Lozenge -) 1 each MM PRN PRN PRN Reason: SORE THROAT Last Admin: 03/03/18 00:32 Dose: 1 each Calcium Carbonate/Cholecalciferol (Os-Gavin 500+D -) 1 tab PO BID [facility] Last Admin: 03/03/18 11:52 Dose: 1 tab Enoxaparin Sodium (Lovenox -) 40 mg SQ DAILY [facility] Last Admin: 03/03/18 11:52 Dose: 40 mg Lactated Ringer's (Lactated Ringers Solution) 1,000 mls @ 75 mls/hr IV ASDIR [facility] Last Admin: 03/03/18 14:00 Dose: 75 mls/hr Ondansetron HCl (Zofran Injection) 4 mg IVPUSH Q6H PRN PRN Reason: NAUSEA AND/OR VOMITING Last Admin: 03/02/18 11:34 Dose: 4 mg Ondansetron HCl (Zofran Injection) 4 mg IVPUSH Q4H PRN PRN Reason: NAUSEA AND/OR VOMITING Last Admin: 03/03/18 13:23 Dose: 4 mg Oxycodone HCl (Roxicodone -) 5 mg PO Q4H PRN PRN Reason: PAIN LEVEL 1-5 Pantoprazole Sodium (Protonix Iv) 40 mg IVPUSH DAILY [facility] Last Admin: 03/03/18 11:52 Dose: 40 mg Phenol/Menthol (Chloraseptic -) 1 spray MM Q6HPO PRN PRN Reason: SORE THROAT Last Admin: 03/03/18 00:31 Dose: 1 spray Polyethylene Glycol (Miralax (For Daily Use) -) 17 gm PO DAILY [facility] Last Admin: 03/03/18 11:52 Dose: 17 gm Senna (Senna -) 1 tab PO HS [facility] - Objective Vital Signs: Vital Signs Temperature 98.6 F 03/03/18 13:40 Pulse Rate 115 H 03/03/18 13:40 Respiratory Rate 20 03/03/18 13:40 Blood Pressure 130/60 03/03/18 13:40 O2 Sat by Pulse Oximetry (%) 96 03/02/18 22:00 Constitutional: Yes: Anxious HENT: Yes: WNL Neck: Yes: WNL Cardiovascular: Yes: Regular Rate and Rhythm (No Murmurs. 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 She present now to the ED with right Hip pain after a mechanical fall. With likely require orthopaedic surgery. She denies cardiac symptoms. She denied chest pain, palpitations, and SOB. She had no cardiac issues during her past surgeries. Now s/p complex prosthetic hip fracture revision. Post Constipation - no bowel movement for 5 days Tachy and diaphoretic post op - would consider ruling out a PE Would favor continuing to observe as an inpatient until less symptomatic
[2018-03-03] MEDS: SODIUM CHLORIDE 1,000 ML IV SCH ×2 (16:00→20:12)
--- NOTE | 2018-03-03 16:17 | PN ---
Progress Note, Physician Chief Complaint: TACHYCARDIA REPORTED BY NURSE PATIENT IS DIAPHORETIC DENIES CHEST PAIN OR SOB NO BM X 5 DAYS - Current Medication List Current Medications: Active Medications Benzocaine/Menthol (Cepacol Lozenge -) 1 each MM PRN PRN PRN Reason: SORE THROAT Last Admin: 03/03/18 00:32 Dose: 1 each Calcium Carbonate/Cholecalciferol (Os-Gavin 500+D -) 1 tab PO BID [facility] Last Admin: 03/03/18 11:52 Dose: 1 tab Enoxaparin Sodium (Lovenox -) 40 mg SQ DAILY [facility] Last Admin: 03/03/18 11:52 Dose: 40 mg Lactated Ringer's (Lactated Ringers Solution) 1,000 mls @ 75 mls/hr IV ASDIR [facility] Last Admin: 03/03/18 14:00 Dose: 75 mls/hr Ondansetron HCl (Zofran Injection) 4 mg IVPUSH Q6H PRN PRN Reason: NAUSEA AND/OR VOMITING Last Admin: 03/02/18 11:34 Dose: 4 mg Ondansetron HCl (Zofran Injection) 4 mg IVPUSH Q4H PRN PRN Reason: NAUSEA AND/OR VOMITING Last Admin: 03/03/18 13:23 Dose: 4 mg Oxycodone HCl (Roxicodone -) 5 mg PO Q4H PRN PRN Reason: PAIN LEVEL 1-5 Pantoprazole Sodium (Protonix Iv) 40 mg IVPUSH DAILY [facility] Last Admin: 03/03/18 11:52 Dose: 40 mg Phenol/Menthol (Chloraseptic -) 1 spray MM Q6HPO PRN PRN Reason: SORE THROAT Last Admin: 03/03/18 00:31 Dose: 1 spray Polyethylene Glycol (Miralax (For Daily Use) -) 17 gm PO DAILY [facility] Last Admin: 03/03/18 11:52 Dose: 17 gm Senna (Senna -) 1 tab PO HS [facility] - Objective Vital Signs: Vital Signs Temperature 98.6 F 03/03/18 13:40 Pulse Rate 115 H 03/03/18 13:40 Respiratory Rate 20 03/03/18 13:40 Blood Pressure 130/60 03/03/18 13:40 O2 Sat by Pulse Oximetry (%) 96 03/02/18 22:00 Constitutional: Yes: Mild Distress Eyes: Yes: WNL HENT: Yes: WNL Neck: Yes: WNL Cardiovascular: Yes: Tachycardia Respiratory: Yes: Diminished, On Nasal O2 Gastrointestinal: Yes: Distention Genitourinary: Yes: Friedman Present Musculoskeletal: Yes: Muscle Weakness Extremities: Yes: Other Edema: No Peripheral Pulses WNL: Yes Integumentary: Yes: WNL Wound/Incision: Yes: Clean/Dry Neurological: Yes: WNL ...Motor Strength: LLE, RLE Psychiatric: Yes: WNL Labs: CBC, BMP 03/03/18 10:12 03/03/18 10:23 INR, PTT INR 0.91 (0.83-1.09) 02/27/18 10:29 Problem List - Problems (1) Femur fracture Code(s): S72.90XA - UNSP FRACTURE OF UNSP FEMUR, INIT ENCNTR FOR CLOSED FRACTURE (2) Hip fracture Code(s): S72.009A - FRACTURE OF UNSP PART OF NECK OF UNSP FEMUR, INIT (3) Hypertension Code(s): I10 - ESSENTIAL (PRIMARY) HYPERTENSION (4) Sinus tachycardia Code(s): R00.0 - TACHYCARDIA, UNSPECIFIED (5) Diaphoresis Code(s): R61 - GENERALIZED HYPERHIDROSIS Assessment/Plan PATIENT WILL NEED A RULE OUT OF PULMONARY EMBOLISM POST-OP PATIENTS HAVE A VERY NON-SPECIFIC D-DIMER LEVEL D-DIME NO SPECIFIC AT THIS TIME WILL ORDER A CT CHEST WITH CONTRAST TO R/O PE RENAL AND PULM EVAL IVF RO PREP SYSTEM ON LOVENOX ALREADY 02 SUPPORT CXR/ABD XRAY SHOW NO OBSTRUCTION BUT ATELECTIC CHANGES INCENTIVE SPIROMETRY D/W PATIENT FRIEDMAN KEEP INSERTED OOB TO CHAIR WITH PT TRANSFER TO TELEMETRY
--- NOTE | 2018-03-03 17:35 | PN ---
Progress Note (short form) - Note Progress Note: PULMONARY CONSULTATION DICTATED 03/03/18 IMP DIAPHORESIS/TACHYCARDIA POST OP DAY 3 R/O PE S/P R FEMORAL FX S/P REMOVAL OF HARDWARE RETROGRADE NAILING FEMORAL SHAFT ATELECTASIS ABDOMINAL DISCOMFORT LIKELY CONSTIPATION HTN ANEMIA H/O MANDIBULAR CA S/P RESECTION PLAN CHEST CTA O2 NEEDED LAXATIVES INCENTIVE SPIROMETER ANALGESICS DVT PROPHYLAXIS DR DURON Problem List - Problems (1) Diaphoresis Code(s): R61 - GENERALIZED HYPERHIDROSIS (2) Femur fracture Code(s): S72.90XA - UNSP FRACTURE OF UNSP FEMUR, INIT ENCNTR FOR CLOSED FRACTURE (3) Sinus tachycardia Code(s): R00.0 - TACHYCARDIA, UNSPECIFIED (4) Hip fracture Code(s): S72.009A - FRACTURE OF UNSP PART OF NECK OF UNSP FEMUR, INIT (5) Hypertension Code(s): I10 - ESSENTIAL (PRIMARY) HYPERTENSION (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
[2018-03-03] MEDS: SENNOSIDES 8.6MG TABLET (FP) PO SCH (22:12)
[2018-03-04] MEDS: oxyCODONE HCL 5 MG TABLET PO PRN ×5 (02:28→22:18)
--- NOTE | 2018-03-04 06:20 | CONS ---
PULMONARY CONSULTATION DATE OF CONSULTATION: 03/03/2018 REFERRING PHYSICIAN: Hodan Graves MD The patient is an 82-year-old female with past medical history of hypertension, osteoarthritis, history of mandibular CA status post resection in April 2013 at [facility], status post bilateral hip fractures, gait disorder, left total knee replacement, and right femoral fracture, admitted to [facility] on February 27, status post mechanical fall, complaining of right hip pain. Patient was noted to have an acute right femoral fracture. Patient underwent a removal of hardware and a retrograde nailing of the right femoral shaft on February 28 without complications. Patient was doing well until today when she was noted to be tachycardic and diaphoretic. She denies any complaints of chest pain or shortness of breath at the time. She did apparently complain of some abdominal discomfort and apparently has not had a bowel movement in 5 days. Patient underwent a chest x-ray, revealed rotated films and atelectatic changes at the bases. Patient is a nonsmoker. There is no apparent history of occupational exposure to chemicals or fumes. PAST MEDICAL HISTORY: Again includes hypertension, history of mandibular CA status post resection in 2012, history of cholecystectomy, osteoarthritis, gait disorder, bilateral hip fractures, right total knee replacement. REVIEW OF SYSTEMS: Positive tachycardia. No chest pain or shortness of breath. Positive cough. No fever. No chills. No hemoptysis. Positive palpitations. Positive diaphoresis. Positive abdominal discomfort. CURRENT MEDICATIONS: Include Zofran, Lovenox, MiraLAX, senna, Chloraseptic, normal saline, lactated Ringer's, , Roxicodone, Protonix, and Os-Gavin. PHYSICAL EXAMINATION: General: The patient is an elderly female, well developed, awake, alert, in no acute respiratory distress. Vital Signs: She is currently afebrile. Heart rate is 115. Blood pressure 130/60. Respiratory rate is 20. O2 saturation is 94% on room air. HEENT: Normocephalic, atraumatic. Neck: Supple. Heart: Tachycardic. S1, S2. Chest: There are a few crackles at the bases. Abdomen: Soft. Bowel sounds are positive. Extremities: No cyanosis or edema. LABORATORY DATA: BUN 19, creatinine 0.7. INR is 0.91. WBC 7.2, hemoglobin 8.8, hematocrit 25.5. IMPRESSION: 1. Tachycardia, diaphoresis, postoperative day 3 status post removal of hardware and retrograde nailing of right femoral shaft. Cannot exclude possible pulmonary embolism. 2. infection. 3. Abdominal pain, abdominal discomfort, possibly secondary to constipation. 4. Hypertension. 5. Anemia. PLAN: A CTA of the chest, supplemental O2, analgesics, laxatives, add supplemental iron. REMA DURON M.D. [id number]
[2018-03-04 07:28] LABS: HEMATOCRIT 25.1 % (32.4-45.2); HEMOGLOBIN 8.2 GM/dL (10.7-15.3); MCH 27.3 pg (25.7-33.7); MCHC 32.7 g/dl (32.0-36.0); MEAN CELL VOLUME 83.5 fl (80-96); MEAN PLT VOLUME 9.2 fl (7.5-11.1); PLATELET COUNT 163 K/MM3 (134-434); RBC 3.01 M/mm3 (3.60-5.2); RDW 14.8 % (11.6-15.6); WHITE BLOOD COUNT 6.6 K/mm3 (4.0-10.0)
[2018-03-04 07:57] LABS: ANION GAP 4 MMOL/L (8-16); BLOOD UREA NITROGEN 18 mg/dL (7-18); CHLORIDE 102 mmol/L (98-107); CO2 31 mmol/L (21-32); CREATININE 0.5 mg/dL (0.55-1.3); GLUCOSE,RANDOM 109 mg/dL (74-106); POTASSIUM 4.2 mmol/L (3.5-5.1); SODIUM 137 mmol/L (136-145)
--- NOTE | 2018-03-04 08:32 | PN ---
Progress Note, Physician - Current Medication List Current Medications: Active Medications Benzocaine/Menthol (Cepacol Lozenge -) 1 each MM PRN PRN PRN Reason: SORE THROAT Last Admin: 03/03/18 00:32 Dose: 1 each Calcium Carbonate/Cholecalciferol (Os-Gavin 500+D -) 1 tab PO BID [facility] Last Admin: 03/03/18 22:12 Dose: 1 tab Enoxaparin Sodium (Lovenox -) 40 mg SQ DAILY [facility] Last Admin: 03/03/18 11:52 Dose: 40 mg Lactated Ringer's (Lactated Ringers Solution) 1,000 mls @ 75 mls/hr IV ASDIR [facility] Last Admin: 03/03/18 20:13 Dose: Not Given Sodium Chloride (Normal Saline -) 1,000 mls @ 83 mls/hr IV ASDIR [facility] Last Admin: 03/03/18 20:12 Dose: Not Given Ondansetron HCl (Zofran Injection) 4 mg IVPUSH Q6H PRN PRN Reason: NAUSEA AND/OR VOMITING Last Admin: 03/02/18 11:34 Dose: 4 mg Ondansetron HCl (Zofran Injection) 4 mg IVPUSH Q4H PRN PRN Reason: NAUSEA AND/OR VOMITING Last Admin: 03/03/18 13:23 Dose: 4 mg Oxycodone HCl (Roxicodone -) 5 mg PO Q4H PRN PRN Reason: PAIN LEVEL 1-5 Last Admin: 03/04/18 06:14 Dose: 5 mg Pantoprazole Sodium (Protonix Iv) 40 mg IVPUSH DAILY [facility] Last Admin: 03/03/18 11:52 Dose: 40 mg Phenol/Menthol (Chloraseptic -) 1 spray MM Q6HPO PRN PRN Reason: SORE THROAT Last Admin: 03/03/18 00:31 Dose: 1 spray Polyethylene Glycol (Miralax (For Daily Use) -) 17 gm PO DAILY [facility] Last Admin: 03/03/18 11:52 Dose: 17 gm Senna (Senna -) 1 tab PO HS [facility] Last Admin: 03/03/18 22:12 Dose: 1 tab - Objective Vital Signs: Vital Signs Temperature 98.7 F 03/04/18 05:00 Pulse Rate 115 H 03/04/18 05:00 Respiratory Rate 18 03/04/18 05:00 Blood Pressure 115/61 03/04/18 05:00 O2 Sat by Pulse Oximetry (%) 93 L 03/03/18 21:00 Labs: CBC, BMP 03/04/18 06:55 03/04/18 06:55 INR, PTT INR 0.91 (0.83-1.09) 02/27/18 10:29 Problem List - Problems (1) Sinus tachycardia Assessment/Plan: -CTA NEG FOR PE -MAYBE DUE TO ANEMIA-HGB 8.2 -CHECK IRON STUDIES -CHECK TSH Code(s): R00.0 - TACHYCARDIA, UNSPECIFIED (2) Femur fracture Assessment/Plan: Operative Date: 02/28/18 ([facility]) Pre-Operative Diagnosis: right femoral shaft fx Operation: right femur removal of hardware, retrograde IM nail Post-Operative Diagnosis: Same as Pre-op Surgeon: Roldan Vences Seat Mender: Obinna Cherry Further plan per ortho Code(s): S72.90XA - UNSP FRACTURE OF UNSP FEMUR, INIT ENCNTR FOR CLOSED FRACTURE (3) Hypertension Assessment/Plan: -MONITOR Code(s): I10 - ESSENTIAL (PRIMARY) HYPERTENSION (4) Constipation Assessment/Plan: -INCREASE MIRAKAX TO BID -DULCOLOX 10 Code(s): K59.00 - CONSTIPATION, UNSPECIFIED
[2018-03-04] MEDS: POLYETHYLENE GLYCOL 3350 119 GM BTL PO SCH ×3 (09:08→22:25)
[2018-03-04] MEDS: ENOXAPARIN NA (PORCINE) 40 MG/0.4 ML DISP.SYRIN SQ SCH (09:08)
[2018-03-04] MEDS: CALCIUM 500MG/VIT-D 200 UNITS COMBO TABLET (FP) PO SCH ×2 (09:08→22:18)
[2018-03-04] MEDS: PANTOPRAZOLE SODIUM 40 MG VIAL IVPUSH SCH (09:09)
--- NOTE | 2018-03-04 09:14 | PN ---
Progress Note, Physician History of Present Illness: c/o cpnstipation no cp - Current Medication List Current Medications: Active Medications Benzocaine/Menthol (Cepacol Lozenge -) 1 each MM PRN PRN PRN Reason: SORE THROAT Last Admin: 03/03/18 00:32 Dose: 1 each Bisacodyl (Dulcolax -) 10 mg PO ONCE ONE Stop: 03/04/18 09:12 Calcium Carbonate/Cholecalciferol (Os-Gavin 500+D -) 1 tab PO BID [facility] Last Admin: 03/04/18 09:08 Dose: 1 tab Enoxaparin Sodium (Lovenox -) 40 mg SQ DAILY [facility] Last Admin: 03/04/18 09:08 Dose: 40 mg Sodium Chloride (Normal Saline -) 1,000 mls @ 83 mls/hr IV ASDIR [facility] Last Admin: 03/03/18 20:12 Dose: Not Given Ondansetron HCl (Zofran Injection) 4 mg IVPUSH Q6H PRN PRN Reason: NAUSEA AND/OR VOMITING Last Admin: 03/02/18 11:34 Dose: 4 mg Ondansetron HCl (Zofran Injection) 4 mg IVPUSH Q4H PRN PRN Reason: NAUSEA AND/OR VOMITING Last Admin: 03/03/18 13:23 Dose: 4 mg Oxycodone HCl (Roxicodone -) 5 mg PO Q4H PRN PRN Reason: PAIN LEVEL 1-5 Last Admin: 03/04/18 06:14 Dose: 5 mg Pantoprazole Sodium (Protonix Iv) 40 mg IVPUSH DAILY [facility] Last Admin: 03/04/18 09:09 Dose: 40 mg Phenol/Menthol (Chloraseptic -) 1 spray MM Q6HPO PRN PRN Reason: SORE THROAT Last Admin: 03/03/18 00:31 Dose: 1 spray Polyethylene Glycol (Miralax (For Daily Use) -) 17 gm PO BID [facility] Senna (Senna -) 1 tab PO HS [facility] Last Admin: 03/03/18 22:12 Dose: 1 tab - Objective Vital Signs: Vital Signs Temperature 98.7 F 03/04/18 05:00 Pulse Rate 115 H 03/04/18 05:00 Respiratory Rate 18 03/04/18 05:00 Blood Pressure 115/61 03/04/18 05:00 O2 Sat by Pulse Oximetry (%) 93 L 03/03/18 21:00 Cardiovascular: Yes: Tachycardia, S1, S2 Respiratory: Yes: Regular, CTA Bilaterally Gastrointestinal: Yes: Normal Bowel Sounds, Soft. No: Tenderness Extremities: Yes: Other (compresion stockings) Labs: CBC, BMP 03/04/18 06:55 03/04/18 06:55 INR, PTT INR 0.91 (0.83-1.09) 02/27/18 10:29 Problem List - Problems (1) Sinus tachycardia Code(s): R00.0 - TACHYCARDIA, UNSPECIFIED (2) Hypertension Code(s): I10 - ESSENTIAL (PRIMARY) HYPERTENSION
[2018-03-04] MEDS ORDERED: BISACODYL 5 MG TABLET.DR (FP) PO ONE (09:45)
--- NOTE | 2018-03-04 10:01 | PN ---
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 She present now to the ED with right Hip pain after a mechanical fall. With likely require orthopaedic surgery. She denies cardiac symptoms. She denied chest pain, palpitations, and SOB. She had no cardiac issues during her past surgeries. Now s/p complex prosthetic hip fracture revision. Post Constipation - no bowel movement for 5 days Tachy and diaphoretic post op - CTA done 03/03/18 no evidence of PE. Transferred to telemetry . Telemetry with runs of PSVT @ 140-160 - Current Medication List Current Medications: Active Medications Benzocaine/Menthol (Cepacol Lozenge -) 1 each MM PRN PRN PRN Reason: SORE THROAT Last Admin: 03/03/18 00:32 Dose: 1 each Calcium Carbonate/Cholecalciferol (Os-Gavin 500+D -) 1 tab PO BID [facility] Last Admin: 03/04/18 09:08 Dose: 1 tab Enoxaparin Sodium (Lovenox -) 40 mg SQ DAILY [facility] Last Admin: 03/04/18 09:08 Dose: 40 mg Sodium Chloride (Normal Saline -) 1,000 mls @ 83 mls/hr IV ASDIR [facility] Last Admin: 03/03/18 20:12 Dose: Not Given Ondansetron HCl (Zofran Injection) 4 mg IVPUSH Q6H PRN PRN Reason: NAUSEA AND/OR VOMITING Last Admin: 03/02/18 11:34 Dose: 4 mg Ondansetron HCl (Zofran Injection) 4 mg IVPUSH Q4H PRN PRN Reason: NAUSEA AND/OR VOMITING Last Admin: 03/03/18 13:23 Dose: 4 mg Oxycodone HCl (Roxicodone -) 5 mg PO Q4H PRN PRN Reason: PAIN LEVEL 1-5 Last Admin: 03/04/18 06:14 Dose: 5 mg Pantoprazole Sodium (Protonix Iv) 40 mg IVPUSH DAILY [facility] Last Admin: 03/04/18 09:09 Dose: 40 mg Phenol/Menthol (Chloraseptic -) 1 spray MM Q6HPO PRN PRN Reason: SORE THROAT Last Admin: 03/03/18 00:31 Dose: 1 spray Polyethylene Glycol (Miralax (For Daily Use) -) 17 gm PO BID [facility] Senna (Senna -) 1 tab PO HS [facility] Last Admin: 03/03/18 22:12 Dose: 1 tab - Objective Vital Signs: Vital Signs Temperature 98.7 F 03/04/18 05:00 Pulse Rate 115 H 03/04/18 05:00 Respiratory Rate 18 03/04/18 05:00 Blood Pressure 115/61 03/04/18 05:00 O2 Sat by Pulse Oximetry (%) 93 L 03/03/18 21:00 Constitutional: Yes: No Distress, Calm Eyes: Yes: Conjunctiva Clear, EOM Intact HENT: Yes: Atraumatic, Normocephalic Neck: Yes: Trachea Midline Cardiovascular: Yes: Regular Rate and Rhythm Respiratory: Yes: CTA Bilaterally Gastrointestinal: Yes: Normal Bowel Sounds, Soft Edema: No Peripheral Pulses WNL: Yes Labs: CBC, BMP 03/04/18 06:55 03/04/18 06:55 INR, PTT INR 0.91 (0.83-1.09) 02/27/18 10:29 Assessment/Plan 82 year old female with a PMH of [place], OA, 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 She present now to the ED with right Hip pain after a mechanical fall. With likely require orthopaedic surgery. She denies cardiac symptoms. She denied chest pain, palpitations, and SOB. She had no cardiac issues during her past surgeries. Now s/p complex prosthetic hip fracture revision. Post Constipation - no bowel movement for 5 days Tachy and diaphoretic post op - due to PSVt CTA 03/03/18: no PE. Plan Increase medical management. Pulm toilet for atalectasis Echo ordered.
[2018-03-04] MEDS: METOPROLOL TARTRATE 25 MG TABLET (FP) PO SCH ×2 (10:21→22:18)
--- NOTE | 2018-03-04 11:20 | PN ---
Progress Note, Physician History of Present Illness: pulmonary alert,feeling better,-cp,-sob. chest cta -pe,bibasilar atelectasis - Current Medication List Current Medications: Active Medications Benzocaine/Menthol (Cepacol Lozenge -) 1 each MM PRN PRN PRN Reason: SORE THROAT Last Admin: 03/03/18 00:32 Dose: 1 each Calcium Carbonate/Cholecalciferol (Os-Gavin 500+D -) 1 tab PO BID [facility] Last Admin: 03/04/18 09:08 Dose: 1 tab Enoxaparin Sodium (Lovenox -) 40 mg SQ DAILY [facility] Last Admin: 03/04/18 09:08 Dose: 40 mg Sodium Chloride (Normal Saline -) 1,000 mls @ 83 mls/hr IV ASDIR [facility] Last Admin: 03/03/18 20:12 Dose: Not Given Metoprolol Tartrate (Lopressor -) 25 mg PO BID [facility] Last Admin: 03/04/18 10:21 Dose: 25 mg Ondansetron HCl (Zofran Injection) 4 mg IVPUSH Q6H PRN PRN Reason: NAUSEA AND/OR VOMITING Last Admin: 03/02/18 11:34 Dose: 4 mg Ondansetron HCl (Zofran Injection) 4 mg IVPUSH Q4H PRN PRN Reason: NAUSEA AND/OR VOMITING Last Admin: 03/03/18 13:23 Dose: 4 mg Oxycodone HCl (Roxicodone -) 5 mg PO Q4H PRN PRN Reason: PAIN LEVEL 1-5 Last Admin: 03/04/18 10:20 Dose: 5 mg Pantoprazole Sodium (Protonix Iv) 40 mg IVPUSH DAILY [facility] Last Admin: 03/04/18 09:09 Dose: 40 mg Phenol/Menthol (Chloraseptic -) 1 spray MM Q6HPO PRN PRN Reason: SORE THROAT Last Admin: 03/03/18 00:31 Dose: 1 spray Polyethylene Glycol (Miralax (For Daily Use) -) 17 gm PO BID [facility] Last Admin: 03/04/18 10:04 Dose: Not Given Senna (Senna -) 1 tab PO HS [facility] Last Admin: 03/03/18 22:12 Dose: 1 tab - Objective Vital Signs: Vital Signs Temperature 98.7 F 03/04/18 05:00 Pulse Rate 115 H 03/04/18 05:00 Respiratory Rate 18 03/04/18 05:00 Blood Pressure 115/61 03/04/18 05:00 O2 Sat by Pulse Oximetry (%) 95 03/04/18 09:00 Constitutional: Yes: Well Nourished, Calm Eyes: Yes: WNL HENT: Yes: WNL Neck: Yes: WNL Cardiovascular: Yes: Regular Rate and Rhythm, S1, S2 Respiratory: Yes: CTA Bilaterally Gastrointestinal: Yes: Normal Bowel Sounds, Soft Extremities: Yes: WNL Edema: No Labs: CBC, BMP 03/04/18 06:55 03/04/18 06:55 INR, PTT INR 0.91 (0.83-1.09) 02/27/18 10:29 Problem List - Problems (1) Diaphoresis Code(s): R61 - GENERALIZED HYPERHIDROSIS (2) Femur fracture Code(s): S72.90XA - UNSP FRACTURE OF UNSP FEMUR, INIT ENCNTR FOR CLOSED FRACTURE (3) Sinus tachycardia Code(s): R00.0 - TACHYCARDIA, UNSPECIFIED (4) Hip fracture Code(s): S72.009A - FRACTURE OF UNSP PART OF NECK OF UNSP FEMUR, INIT (5) Hypertension Code(s): I10 - ESSENTIAL (PRIMARY) HYPERTENSION (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 Assessment/Plan IMP DIAPHORESIS/TACHYCARDIA POST OP DAY 3 R/O PE RESOLVED S/P R FEMORAL FX S/P REMOVAL OF HARDWARE RETROGRADE NAILING FEMORAL SHAFT ATELECTASIS ABDOMINAL DISCOMFORT LIKELY CONSTIPATION HTN ANEMIA H/O MANDIBULAR CA S/P RESECTION PLAN ECHO O2 NEEDED LAXATIVES INCENTIVE SPIROMETER ANALGESICS DVT PROPHYLAXIS DR DURON Problem List - Problems (1) Diaphoresis Code(s): R61 - GENERALIZED HYPERHIDROSIS (2) Femur fracture Code(s): S72.90XA - UNSP FRACTURE OF UNSP FEMUR, INIT ENCNTR FOR CLOSED FRACTURE (3) Sinus tachycardia Code(s): R00.0 - TACHYCARDIA, UNSPECIFIED (4) Hip fracture Code(s): S72.009A - FRACTURE OF UNSP PART OF NECK OF UNSP FEMUR, INIT (5) Hypertension Code(s): I10 - ESSENTIAL (PRIMARY) HYPERTENSION (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
--- NOTE | 2018-03-04 11:42 | ECHO ---
Name: CAROLINA DOUGHERTY Exam:Adult Echocardiogram Study Date: 03/04/2018 10:49 AM Age: 82 yrs Reason For Study: PSVT Height: 65 in Weight: 156 lb BSA: 1.8 m2 MMode/2D Measurements & Calculations IVSd: 1.7 cm LA dimension: 3.7 cm LVIDd: 3.4 cm LVIDs: 2.2 cm LVPWd: 0.87 cm EDV(Teich): 48.0 ml LAV (MOD-bp): 52.6 ml ESV(Teich): 16.1 ml Doppler Measurements & Calculations MV E max jayjay: 76.6 cm/sec TR max jayjay: 237.1 cm/sec MV A max jayjay: 109.1 cm/sec TR max P.5 mmHg MV E/A: 0.70 MV dec time: 0.05 sec Med Peak E' Jayjay: 5.0 cm/sec Med E/e': 15.3 Lat Peak E' Jayjay: 9.0 cm/sec Lat E/e': 8.5 Procedure A complete two-dimensional transthoracic echocardiogram was performed (2D, M-mode, Doppler and color flow Doppler). Left Ventricle The left ventricle is normal in size. There is severe concentric left ventricular hypertrophy. The le ft ventricular ejection fraction is normal. Ejection Fraction = 65%. The transmitral spectral Doppler fl ow pattern is suggestive of impaired LV relaxation. Mitral Valve There is mild mitral annular calcification. There is trace to mild mitral regurgitation. Tricuspid Valve The tricuspid valve is not well visualized, but is grossly normal. There is trace tricuspid regurgita tion. Right ventricular systolic pressure is 22.5 mmhg. Aortic Valve There is mild aortic valve thickening. No aortic regurgitation is present. Pulmonic Valve The pulmonic valve is not well visualized. Great Vessels The aortic root is normal size. Pericardium/Pleura There is no pericardial effusion. There is no pleural effusion. Interpretation Summary There is severe concentric left ventricular hypertrophy. The left ventricular ejection fraction is normal. Ejection Fraction = 65%. There is mild mitral annular calcification. There is trace to mild mitral regurgitation. There is trace tricuspid regurgitation. There is mild aortic valve thickening. Right ventricular systolic pressure is 22.5 mmhg. MD Linus Nayak 03/04/2018 11:41 AM
[2018-03-04] MEDS ORDERED: IRON SUCROSE INJECTION 200 MG in SODIUM CHLORIDE 90 ML IVPB ONE (16:30)
--- NOTE | 2018-03-04 16:40 | CONSULT ---
Consult - text type - Consultation Consultation Note: AVSS COMFORTABLE WITH MILD SOB (BEING FOLLOWED BY \DR DURON BANDAGES DRY AND INTACT CALF SOFT AND NT MILD SWELLING OF THIGH HCT=25 IMP: ORTHOPEDICALLY STABLE PLAN: OOB,PT. CHECK HCT TOMORROW
[2018-03-04] MEDS: SODIUM CHLORIDE 1,000 ML IV SCH (18:05)
[2018-03-04] MEDS: SENNOSIDES 8.6MG TABLET (FP) PO SCH (22:18)
[2018-03-05] MEDS: ONDANSETRON 4 MG/2 ML VIAL IVPUSH PRN (01:18)
[2018-03-05] MEDS ORDERED: oxyCODONE HCL 5 MG TABLET PO ONE (01:38)
[2018-03-05] MEDS: oxyCODONE HCL 5 MG TABLET PO PRN ×4 (05:58→21:59)
[2018-03-05 06:06] LABS: SERUM IRON SATURATION 24 % (15-55); TOTAL IRON BINDING CAPACITY 141 ug/dL (250-450); UIBC 107 ug/dL (118-369)
[2018-03-05] MEDS ORDERED: SODIUM PHOSPHATE/NA BIPHOS 133 ML ENEMA PR ONE (06:43)
[2018-03-05 09:04] LABS: BASO % 0.6 % (0-2.0); HEMATOCRIT 25.8 % (32.4-45.2); HEMOGLOBIN 8.4 GM/dL (10.7-15.3); MCH 27.4 pg (25.7-33.7); MCHC 32.6 g/dl (32.0-36.0); MEAN CELL VOLUME 84.1 fl (80-96); MEAN PLT VOLUME 9.3 fl (7.5-11.1); MONO % 2.6 % (3.8-10.2); NEUT % 80.8 % (42.8-82.8); PLATELET COUNT 227 K/MM3 (134-434); RBC 3.06 M/mm3 (3.60-5.2); RDW 15.2 % (11.6-15.6); WHITE BLOOD COUNT 8.7 K/mm3 (4.0-10.0)
--- NOTE | 2018-03-05 09:23 | PN ---
Progress Note, Physician Chief Complaint: CRYING IN DISTRESS STABBING CRAMPS IN ABDOMEN NO BM YEY DENIES CHEST PAIN NO SOB - Current Medication List Current Medications: Active Medications Amino Acids (Prosource No Carb Liquid Pkt) 30 ml PO BID@0800,1730 [facility] Benzocaine/Menthol (Cepacol Lozenge -) 1 each MM PRN PRN PRN Reason: SORE THROAT Last Admin: 03/03/18 00:32 Dose: 1 each Calcium Carbonate/Cholecalciferol (Os-Gavin 500+D -) 1 tab PO BID [facility] Last Admin: 03/04/18 22:18 Dose: 1 tab Enoxaparin Sodium (Lovenox -) 40 mg SQ DAILY [facility] Last Admin: 03/04/18 09:08 Dose: 40 mg Sodium Chloride (Normal Saline -) 1,000 mls @ 83 mls/hr IV ASDIR [facility] Last Admin: 03/04/18 18:05 Dose: 83 mls/hr Metoprolol Tartrate (Lopressor -) 25 mg PO BID [facility] Last Admin: 03/04/18 22:18 Dose: 25 mg Ondansetron HCl (Zofran Injection) 4 mg IVPUSH Q6H PRN PRN Reason: NAUSEA AND/OR VOMITING Last Admin: 03/02/18 11:34 Dose: 4 mg Ondansetron HCl (Zofran Injection) 4 mg IVPUSH Q4H PRN PRN Reason: NAUSEA AND/OR VOMITING Last Admin: 03/05/18 01:18 Dose: 4 mg Oxycodone HCl (Roxicodone -) 5 mg PO Q4H PRN PRN Reason: PAIN LEVEL 1-5 Last Admin: 03/05/18 05:58 Dose: 5 mg Pantoprazole Sodium (Protonix Iv) 40 mg IVPUSH DAILY [facility] Last Admin: 03/04/18 09:09 Dose: 40 mg Phenol/Menthol (Chloraseptic -) 1 spray MM Q6HPO PRN PRN Reason: SORE THROAT Last Admin: 03/03/18 00:31 Dose: 1 spray Polyethylene Glycol (Miralax (For Daily Use) -) 17 gm PO BID [facility] Last Admin: 03/04/18 22:25 Dose: 17 gm Senna (Senna -) 1 tab PO HS [facility] Last Admin: 10/09/18 22:18 Dose: 1 tab - Objective Vital Signs: Vital Signs Temperature 98 F 03/05/18 05:00 Pulse Rate 93 H 03/05/18 05:00 Respiratory Rate 18 03/05/18 05:00 Blood Pressure 128/57 L 03/05/18 05:00 O2 Sat by Pulse Oximetry (%) 95 03/04/18 21:00 Constitutional: Yes: Moderate Distress Eyes: Yes: WNL HENT: Yes: WNL Neck: Yes: WNL Cardiovascular: Yes: Tachycardia Respiratory: Yes: WNL Gastrointestinal: Yes: Soft, Tenderness Genitourinary: Yes: Blount Present Musculoskeletal: Yes: Muscle Weakness Extremities: Yes: Other Edema: No Peripheral Pulses WNL: Yes Integumentary: Yes: WNL Wound/Incision: Yes: Clean/Dry, Dressing Dry and Intact Neurological: Yes: WNL, Pre-Existing Deficit ...Motor Strength: LLE, RLE Psychiatric: Yes: Other Labs: CBC, BMP 03/05/18 08:40 03/04/18 06:55 INR, PTT INR 0.91 (0.83-1.09) 02/27/18 10:29 Problem List - Problems (1) Femur fracture Code(s): S72.90XA - UNSP FRACTURE OF UNSP FEMUR, INIT ENCNTR FOR CLOSED FRACTURE (2) Hip fracture Code(s): S72.009A - FRACTURE OF UNSP PART OF NECK OF UNSP FEMUR, INIT (3) Hypertension Code(s): I10 - ESSENTIAL (PRIMARY) HYPERTENSION (4) Sinus tachycardia Code(s): R00.0 - TACHYCARDIA, UNSPECIFIED (5) Diaphoresis Code(s): R61 - GENERALIZED HYPERHIDROSIS Assessment/Plan FLEET ENEMA X 1 DE MIRLAX AND SENNA STOP ALL OPIODS OOB TO CHAIR PT EVAL KEEP FOR 1 MORE DAY LONG POST OP RECOVERY DUE TO AGE AND CO-MORBID HX RASHID OLIVEIRA TOMORROW
[2018-03-05] MEDS: METOPROLOL TARTRATE 25 MG TABLET (FP) PO SCH ×2 (09:50→21:58)
[2018-03-05] MEDS: ENOXAPARIN NA (PORCINE) 40 MG/0.4 ML DISP.SYRIN SQ SCH (09:52)
[2018-03-05] MEDS: POLYETHYLENE GLYCOL 3350 119 GM BTL PO SCH ×2 (09:52→21:58)
[2018-03-05] MEDS: CALCIUM 500MG/VIT-D 200 UNITS COMBO TABLET (FP) PO SCH ×2 (09:53→21:58)
[2018-03-05] MEDS: PANTOPRAZOLE SODIUM 40 MG VIAL IVPUSH SCH (09:53)
--- NOTE | 2018-03-05 10:40 | PN ---
Progress Note, Physician History of Present Illness: pulmonary alert,c/o abd cramping. -sob - Current Medication List Current Medications: Active Medications Amino Acids (Prosource No Carb Liquid Pkt) 30 ml PO BID@0800,1730 [facility] Benzocaine/Menthol (Cepacol Lozenge -) 1 each MM PRN PRN PRN Reason: SORE THROAT Last Admin: 03/03/18 00:32 Dose: 1 each Calcium Carbonate/Cholecalciferol (Os-Gavin 500+D -) 1 tab PO BID [facility] Last Admin: 03/05/18 09:53 Dose: 1 tab Enoxaparin Sodium (Lovenox -) 40 mg SQ DAILY [facility] Last Admin: 03/05/18 09:52 Dose: 40 mg Sodium Chloride (Normal Saline -) 1,000 mls @ 83 mls/hr IV ASDIR [facility] Last Admin: 03/04/18 18:05 Dose: 83 mls/hr Metoprolol Tartrate (Lopressor -) 25 mg PO BID [facility] Last Admin: 03/05/18 09:50 Dose: 25 mg Ondansetron HCl (Zofran Injection) 4 mg IVPUSH Q6H PRN PRN Reason: NAUSEA AND/OR VOMITING Last Admin: 03/02/18 11:34 Dose: 4 mg Ondansetron HCl (Zofran Injection) 4 mg IVPUSH Q4H PRN PRN Reason: NAUSEA AND/OR VOMITING Last Admin: 03/05/18 01:18 Dose: 4 mg Oxycodone HCl (Roxicodone -) 5 mg PO Q4H PRN PRN Reason: PAIN LEVEL 1-5 Last Admin: 03/05/18 09:49 Dose: 5 mg Pantoprazole Sodium (Protonix Iv) 40 mg IVPUSH DAILY [facility] Last Admin: 03/05/18 09:53 Dose: 40 mg Phenol/Menthol (Chloraseptic -) 1 spray MM Q6HPO PRN PRN Reason: SORE THROAT Last Admin: 03/03/18 00:31 Dose: 1 spray Polyethylene Glycol (Miralax (For Daily Use) -) 17 gm PO BID [facility] Last Admin: 03/05/18 09:52 Dose: 17 gm Senna (Senna -) 1 tab PO HS [facility] Last Admin: 03/04/18 22:18 Dose: 1 tab - Objective Vital Signs: Vital Signs Temperature 98 F 03/05/18 05:00 Pulse Rate 93 H 03/05/18 05:00 Respiratory Rate 18 03/05/18 05:00 Blood Pressure 128/57 L 03/05/18 05:00 O2 Sat by Pulse Oximetry (%) 95 03/04/18 21:00 Constitutional: Yes: Well Nourished, Mild Distress Eyes: Yes: WNL HENT: Yes: WNL Neck: Yes: WNL Cardiovascular: Yes: Regular Rate and Rhythm, S1, S2 Respiratory: Yes: Diminished Gastrointestinal: Yes: Soft, Tenderness Extremities: Yes: WNL Edema: No Labs: CBC, BMP 03/05/18 08:40 Problem List - Problems (1) Diaphoresis Code(s): R61 - GENERALIZED HYPERHIDROSIS (2) Femur fracture Code(s): S72.90XA - UNSP FRACTURE OF UNSP FEMUR, INIT ENCNTR FOR CLOSED FRACTURE (3) Sinus tachycardia Code(s): R00.0 - TACHYCARDIA, UNSPECIFIED (4) Hip fracture Code(s): S72.009A - FRACTURE OF UNSP PART OF NECK OF UNSP FEMUR, INIT (5) Hypertension Code(s): I10 - ESSENTIAL (PRIMARY) HYPERTENSION (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 Assessment/Plan IMP DIAPHORESIS/TACHYCARDIA POST OP DAY 3 R/O PE RESOLVED S/P R FEMORAL FX S/P REMOVAL OF HARDWARE RETROGRADE NAILING FEMORAL SHAFT ATELECTASIS ABDOMINAL DISCOMFORT LIKELY CONSTIPATION HTN ANEMIA H/O MANDIBULAR CA S/P RESECTION PLAN O2 NEEDED LAXATIVES INCENTIVE SPIROMETER ANALGESICS DVT PROPHYLAXIS DR DURON Problem List - Problems (1) Diaphoresis Code(s): R61 - GENERALIZED HYPERHIDROSIS (2) Femur fracture Code(s): S72.90XA - UNSP FRACTURE OF UNSP FEMUR, INIT ENCNTR FOR CLOSED FRACTURE (3) Sinus tachycardia Code(s): R00.0 - TACHYCARDIA, UNSPECIFIED (4) Hip fracture Code(s): S72.009A - FRACTURE OF UNSP PART OF NECK OF UNSP FEMUR, INIT (5) Hypertension Code(s): I10 - ESSENTIAL (PRIMARY) HYPERTENSION (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
--- NOTE | 2018-03-05 11:41 | PN ---
Progress Note (short form) - Note Progress Note: Ortho Pt seen and examined s/p right femur retrograde nail. Right LE doing well, however family states that her left leg is giving her pain and is unable to ambulate on the left LE due to the pain. Pt states that she was having pain in her left leg prior to the fall. Selected Entries 03/05/18 05:00 Temperature 98 F Pulse Rate 93 H Respiratory 18 Rate Blood Pressure 128/57 L Laboratory Tests 03/05/18 08:40 WBC 8.7 Hgb 8.4 L Hct 25.8 L Plt Count 227 D Right LE-dressing c/d/i, calf soft, nt nvi Left LE- well healed surgical incision, minimal swelling, + ttp lateral ankle, medial left knee good rom of foot and ankle, ROM of knee 0-80 nvi a/p Xrays ordered of Left LE PT PWB dvt ppx pain control d/c planning
[2018-03-05] MEDS ORDERED: METHYL SALICYLATE/MENTHOL OINT 30 GM TUBE TP PRN (12:19)
--- NOTE | 2018-03-05 14:13 | PN ---
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 She present now to the ED with right Hip pain after a mechanical fall. With likely require orthopaedic surgery. She denies cardiac symptoms. She denied chest pain, palpitations, and SOB. She had no cardiac issues during her past surgeries. Now s/p complex prosthetic hip fracture revision. 03/05/18 symptomatically improved - Current Medication List Current Medications: Active Medications Amino Acids (Prosource No Carb Liquid Pkt) 30 ml PO BID@0800,1730 [facility] Benzocaine/Menthol (Cepacol Lozenge -) 1 each MM PRN PRN PRN Reason: SORE THROAT Last Admin: 03/03/18 00:32 Dose: 1 each Calcium Carbonate/Cholecalciferol (Os-Gavin 500+D -) 1 tab PO BID [facility] Last Admin: 03/05/18 09:53 Dose: 1 tab Enoxaparin Sodium (Lovenox -) 40 mg SQ DAILY [facility] Last Admin: 03/05/18 09:52 Dose: 40 mg Methyl Salicylate (Remy-Dinero -) 1 applic TP Q6H PRN PRN Reason: TOPICAL Metoprolol Tartrate (Lopressor -) 25 mg PO BID [facility] Last Admin: 03/05/18 09:50 Dose: 25 mg Ondansetron HCl (Zofran Injection) 4 mg IVPUSH Q6H PRN PRN Reason: NAUSEA AND/OR VOMITING Last Admin: 03/02/18 11:34 Dose: 4 mg Ondansetron HCl (Zofran Injection) 4 mg IVPUSH Q4H PRN PRN Reason: NAUSEA AND/OR VOMITING Last Admin: 03/05/18 01:18 Dose: 4 mg Oxycodone HCl (Roxicodone -) 5 mg PO Q4H PRN PRN Reason: PAIN LEVEL 1-5 Last Admin: 03/05/18 09:49 Dose: 5 mg Pantoprazole Sodium (Protonix Iv) 40 mg IVPUSH DAILY [facility] Last Admin: 03/05/18 09:53 Dose: 40 mg Phenol/Menthol (Chloraseptic -) 1 spray MM Q6HPO PRN PRN Reason: SORE THROAT Last Admin: 03/03/18 00:31 Dose: 1 spray Polyethylene Glycol (Miralax (For Daily Use) -) 17 gm PO BID [facility] Last Admin: 03/05/18 09:52 Dose: 17 gm Senna (Senna -) 1 tab PO HS [facility] Last Admin: 03/04/18 22:18 Dose: 1 tab - Objective Vital Signs: Vital Signs Temperature 98 F 03/05/18 05:00 Pulse Rate 93 H 03/05/18 05:00 Respiratory Rate 18 03/05/18 05:00 Blood Pressure 128/57 L 03/05/18 05:00 O2 Sat by Pulse Oximetry (%) 95 03/04/18 21:00 Constitutional: Yes: No Distress Eyes: Yes: WNL HENT: Yes: WNL Neck: Yes: WNL Cardiovascular: Yes: Regular Rate and Rhythm (NL S1S2 No MRHG) Respiratory: Yes: CTA Bilaterally Gastrointestinal: Yes: Soft Extremities: Yes: WNL Edema: No Neurological: Yes: Alert, Oriented (Non focal) Labs: CBC, BMP 03/05/18 08:40 03/04/18 06:55 INR, PTT INR 0.91 (0.83-1.09) 02/27/18 10:29 Assessment/Plan 82 year old female with a PMH of [place], OA, 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 She present now to the ED with right Hip pain after a mechanical fall. With likely require orthopaedic surgery. She denies cardiac symptoms. She denied chest pain, palpitations, and SOB. She had no cardiac issues during her past surgeries. Now s/p complex prosthetic hip fracture revision. CT 03/03/18 No evidence of a PE Echocardiogram 03/05/18 Moderate concentric LVH Normal LV function with a normal EF Mild MR Mod to severe MR Moderate LAE Moderate NELIDA Mod TR Mild to Mod AI PASP 30 - 40 mmHg Stable from a cardiac standpoint.
[2018-03-05] MEDS ORDERED: IRON SUCROSE INJECTION 200 MG in SODIUM CHLORIDE 90 ML IVPB ONE (16:49)
[2018-03-05] MEDS ORDERED: ACETAMINOPHEN 325 MG TABLET (FP) PO PRN (16:50)
[2018-03-05] MEDS: AMINO ACIDS/PROTEIN HYDROLYS 30 ML LIQUID.PKT PO SCH (18:24)
[2018-03-05] MEDS: SENNOSIDES 8.6MG TABLET (FP) PO SCH (21:58)
[2018-03-06] MEDS: oxyCODONE HCL 5 MG TABLET PO PRN ×3 (05:35→13:48)
[2018-03-06] MEDS: AMINO ACIDS/PROTEIN HYDROLYS 30 ML LIQUID.PKT PO SCH (08:12)
--- NOTE | 2018-03-06 09:54 | DS ---
Physical Examination Vital Signs: Vital Signs Temperature 97.7 F 03/06/18 05:00 Pulse Rate 95 H 03/06/18 05:00 Respiratory Rate 18 03/06/18 05:00 Blood Pressure 113/59 L 03/06/18 05:00 O2 Sat by Pulse Oximetry (%) 98 03/05/18 21:00 Constitutional: Yes: Mild Distress Eyes: Yes: WNL HENT: Yes: WNL Neck: Yes: WNL Cardiovascular: Yes: WNL Respiratory: Yes: WNL Gastrointestinal: Yes: WNL Renal/: Yes: WNL Musculoskeletal: Yes: Muscle Weakness Edema: No Peripheral Pulses WNL: Yes Integumentary: Yes: Other Wound/Incision: Yes: Dressing Dry and Intact Neurological: Yes: Pre-Existing Deficit ...Motor Strength: LLE, RLE Psychiatric: Yes: WNL Labs: CBC, BMP 03/05/18 08:40 03/04/18 06:55 Discharge Summary Reason For Visit: FRACTURE OF FEMUR Current Active Problems Carcinoma of mandible (Acute) Constipation (Acute) Diaphoresis (Acute) Femur fracture (Acute) Sinus tachycardia (Acute) Procedures: Principal: HIP FX SURGERY RIGHT HIP Hospital Course: ADMITTED RIGHT HIP SURGERY FOR FX, VERY WEAK AND SENSITIVE TO TOUCH WILL NEED AGGRESSIVE REHAB AT SNF Condition: Stable - Instructions Diet, Activity, Other Instructions: SOFT LOW SALT CHECK CBC BMP PROTEIN SUPPLEMENTS Referrals: Hodan Graves MD [Primary Care Provider] - Disposition: [facility] FACILITY - Home Medications Comprehensive Discharge Medication List: Ambulatory Orders Atenolol [Tenormin -] 100 mg PO DAILY 04/04/14 Acetaminophen [Tylenol .Regular Strength -] 650 mg PO Q6H PRN #10 tablet Antiox.mv No.10/Omeg3s/Lut/Loly [I-Caps with Lutein-[place] 3 Sfg] 1 each PO DAILY 05/09/15 Calcium 500 mg PO BID 05/09/15 Cholecalciferol (Vitamin D3) [Vitamin D-3] 2,000 unit PO DAILY 05/09/15 Multivit-Min/FA/Lycopen/Lutein [Centrum Silver Tablet] 1 each PO DAILY 05/09/15 Aspirin [ASA -] 325 mg PO DAILY@0800 tablet 05/10/15 Calcium 500Mg/Vit-D 200 Units [Os-Gavin 500+D -] 1 tab PO BID tab 03/03/18 Enoxaparin [Lovenox -] 40 mg SQ DAILY disp.syrin 03/03/18 Phenol [Chloraseptic -] 1 spray MM Q6HPO PRN bottle 03/03/18 Polyethylene Glycol 3350 [Miralax 119 gm Btl -] 17 gm PO DAILY bottle 03/03/18 Sennosides [Senna -] 1 tab PO HS tablet 03/03/18 Acetaminophen [Tylenol .Regular Strength -] 650 mg PO Q6H PRN tablet 03/06/18 Amino Acids/Protein Hydrolys [Prosource No Carb Liquid Pkt] 30 ml PO BID@0800, 1730 packet 03/06/18 Methyl Salicylate/Menthol Oint [Analgesic [place] -] 1 applic TP Q6H PRN applic Metoprolol Tartrate [Lopressor -] 25 mg PO BID tablet 03/06/18 Polyethylene Glycol 3350 [Miralax 119 gm Btl -] 17 gm PO BID bottle 03/06/18
[2018-03-06] MEDS: POLYETHYLENE GLYCOL 3350 119 GM BTL PO SCH (10:12)
[2018-03-06] MEDS: METOPROLOL TARTRATE 25 MG TABLET (FP) PO SCH (10:12)
[2018-03-06] MEDS: ENOXAPARIN NA (PORCINE) 40 MG/0.4 ML DISP.SYRIN SQ SCH (10:12)
[2018-03-06] MEDS: CALCIUM 500MG/VIT-D 200 UNITS COMBO TABLET (FP) PO SCH (10:12)
[2018-03-06] MEDS: PANTOPRAZOLE SODIUM 40 MG VIAL IVPUSH SCH (10:13)
--- NOTE | 2018-03-06 10:18 | PN ---
Progress Note (short form) - Note Progress Note: Pt seen and examined, with family and PMD at bedside. Pt is s/p right femur ORIF with IM nail. From that she is doing quite well, less pain. She had a hard time with P.T. yesterday, was mostly c/o left foot and ankle pain. AVSS H/H stable RLE Looks good. Dressing CDI. RLE NVI Intact ROM at the right knee, ankle, foot, toes with minimal pain. LLE Looks good, no signs of acute trauma. No echymosis. Min swelling. No deformity. Only very mildly tender over the left foot and ankle. Xrays of the left foot and ankle show diffuse OA, no acute bony pathology , no fractures. Imp Doing well s/p right femur ORIF Left foot and ankle sprain on top of OA Rec DC/transfer to [facility] [place] today. P.T., WBAT
[2018-03-06 11:52] VITALS: BP 114/60; PULSE 96; TEMP 97.6
--- NOTE | 2018-03-07 14:24 | PATH ---
Surgical Pathology Report Patient Name: CAROLINA DOUGHERTY Med. Rec. #: [id number] /Age/Gender: 1935 (Age: 82) / F Account: [id number] Location: 4 W TELEMETRY U Taken: 02/28/2018 Received: 03/03/2018 Reported: 03/04/2018 Physicians: Jose Angel Zapata M.D. Specimen(s) Received OLD HARDWARE Clinical History Fracture of right femur Final Diagnosis OLD HARDWARE, REMOVAL: SURGICAL HARDWARE. MACROSCOPIC DIAGNOSIS. Electronically Signed Gerda Sanders M.D. Gross Description Received fresh labeled "old hardware," are 4 segundo metallic screws averaging 4.0 cm in length. No soft tissue is present. No sections are submitted, gross only. /03/03/2018 saudi03/03/2018
== END 2018-03-06 14:03 | DRG 463 ==
LOC: JER 08:38 → JERBED 11:53 → J6S 17:36 → J4W 03-03 20:23
PROVIDERS: ADMIT Family Medicine; ATTEND Family Medicine
PROC: 0QS804Z Reposition Right Femoral Shaft with Internal Fixation Device, Open Approach (ICD-10-PCS; 2018-02-28)
PROC: 0SPR0JZ Removal of Synthetic Substitute from Right Hip Joint, Femoral Surface, Open Approach (ICD-10-PCS; principal; 2018-02-28 12:30)
DX: M97.01XA Periprosthetic fracture around internal prosthetic right hip joint, initial encounter (principal); S72.301A Unspecified fracture of shaft of right femur, initial encounter for closed fracture; J98.11 Atelectasis; I47.1 Supraventricular tachycardia; I97.191 Other postprocedural cardiac functional disturbances following other surgery; M19.90 Unspecified osteoarthritis, unspecified site; I10 Essential (primary) hypertension; D72.829 Elevated white blood cell count, unspecified; M19.072 Primary osteoarthritis, left ankle and foot; Z85.89 Personal history of malignant neoplasm of other organs and systems; Z96.652 Presence of left artificial knee joint; K21.9 Gastro-esophageal reflux disease without esophagitis; R26.9 Unspecified abnormalities of gait and mobility; K59.09 Other constipation; I49.5 Sick sinus syndrome; Y83.8 Other surgical procedures as the cause of abnormal reaction of the patient, or of later complication, without mention of misadventure at the time of the procedure; M62.81 Muscle weakness (generalized); D64.9 Anemia, unspecified; R61 Generalized hyperhidrosis
CPT/HCPCS: 36415; 36430; 71045-TC-FY; 71260-TC; 73502-TC-LT-FY; 73523-TC-FY; 73560-TC-LT-FY; 73590-TC-LT-FY; 73610-TC-LT-FY; 73630-TC-LT; 74018-TC-FY; 76000-TC-FY; 80048; 80053; 81003; 82550; 82553; 82728; 83540; 83550; 84443; 84484; 85025; 85027; 85610; 85730; 86850; 86900; 86901; 86922; 87086; 88300-TC; 93005; 93010; 93306-TC; 94010; 94760; 97116-GP; 99285-25; J1756; J7030; P9038; P9058